=== PATIENT | male | born 1950 | race American Indian/Alaskan Native ===

== ENCOUNTER 2017-08-13 11:30 | Emergency (ER) | payer MEDICARE ==
--- NOTE | 2017-08-13 12:15 | Emergency Department Report ---
Chief Complaint: Dizziness Stated Complaint: DIZZINESS - HPI History of Present Illness: This is a 66-year-old male presented with dizziness. He denies any head trauma. Denies any nausea vomiting, chest pain, short of breath, fever, chills , stiff neck or headache. Past medical history includes renal disease, hep C, anemia. - Exam Vital Signs: Vital Signs 08/13/17 11:53 Temperature 98.5 F Pulse Rate 79 Respiratory 18 Rate Blood Pressure 118/75 O2 Sat by Pulse 100 Oximetry Physical Exam: GENERAL: The patient is a well-developed, well-nourished female in no apparent distress. Patient is alert and acting appropriately for age. Alert and oriented 3, no apparent distress, normal gait, atraumatic. NECK: Supple. No carotid bruits. No lymphadenopathy or thyromegaly.nontender. No meningitic signs are noted. LUNGS: Clear to auscultation. Non labor breathing. No intercostal retractions. Symmetrical with respiration, no wheezing, no rales, or crackles. HEART: Regular rate and rhythm without murmur, rubs or gallops. No reproducible. S1, S2 present, regular rate and rhythm without murmur, no rubs, no gallops. ABDOMEN: Soft, nontender, and nondistended. Positive bowel sounds. No hepatosplenomegaly was noted. No guarding or rebound tenderness, negative epigastric bruit. Negative psoas sign, negative betts sign, negative McBurneys sign NEUROLOGIC: Cranial nerves II through XII are grossly intact. Alert and oriented x 3. Normal gait. Symmetrical strength and sensation. Reflexes 2+ throughout. Cerebellar testing normal. GCS score of 15. MSE screening note: Focused history and physical exam performed. Due to findings the following was ordered: 1- This initial assessment/diagnostic orders/clinical plan/ treatment(s) is/are subject to change based on pt's health status, clinical progression and re- assessment by fellow clinical providers in the ED. Further treatment and workup at subsequent clinical provers discretion. Patient/guardians urged not to elope from ED as their condition may be serious if not clinically assessed and managed. 2-EKG 3-CBC, CMP, UA, Lipase 4-orthostatic vital signs ED Disposition for MSE Condition: Stable
[2017-08-13 12:33] LABS: Basophils % (Auto) 0.3 % (0.0-1.8); Eosinophils % (Auto) 1.4 % (0.0-4.3); Hematocrit 29.2 % (35.5-45.6); Hemoglobin 9.2 gm/dl (11.8-15.2); Mean Corpuscular HGB Conc 31 % (32-34); Mean Corpuscular Hemoglobin 27 pg (28-32); Mean Corpuscular Volume 85 fl (84-94); Platelet Count 150 K/mm3 (140-440); Red Blood Count 3.43 M/mm3 (3.65-5.03); Red Cell Distribution Width 14.5 % (13.2-15.2)
[2017-08-13 12:53] LABS: Albumin 3.8 g/dL (3.9-5); Albumin/Globulin Ratio 1.1 %; Bilirubin,Total 0.5 mg/dL (0.1-1.2); Calcium 8.4 mg/dL (8.4-10.2); Chloride 106.4 mmol/L (98-107); Potassium 4.9 mmol/L (3.6-5.0); Total Protein 7.3 g/dL (6.3-8.2)
[2017-08-13 18:07] LABS: Bacteria,Urine 1+ /HPF (Negative); Bilirubin,Urine NEG (Negative); Blood,Urine NEG (Negative); Ketones,Urine NEG (Negative); Leukocyte Esterase,Urine TR (Negative); Mucus,Urine FEW /HPF; Nitrite,Urine NEG (Negative); Protein,Urine <15 mg/dL mg/dL (Negative); Urobilinogen,Urine < 2.0 mg/dL (<2.0)
--- NOTE | 2017-08-13 21:59 | Emergency Department Report ---
ED General Adult HPI - General Chief complaint: Dizziness Stated complaint: DIZZINESS Time Seen by Provider: 08/13/17 20:25 Source: EMS Mode of arrival: Wheelchair Limitations: Physical Limitation - History of Present Illness Initial comments: Patient is a 66-year-old male past medical history of chronic kidney disease stage III and hypertension who presents with lightheadedness and dizziness. Patient's symptoms have been going on for about one hour. He was taking his blood pressure medications and afterwards he felt lightheaded. His blood pressure was 80 systolic however when EMS arrived his blood pressure was normotensive. Patient states that he is not lightheaded at the moment no nausea no vomiting. Additional history was obtained by cabin cleaner. Patient has some confusion at baseline. Patient is able to ambulate without any difficulty pulse ox is 100% on room air. Severity scale (0 -10): 0 - Related Data Previous Rx's Medication Instructions Recorded Last Taken Type Carvedilol [Coreg] 6.25 mg PO BID #60 tablet 06/30/13 Unknown Rx Clopidogrel [Plavix] 75 mg PO QDAY #30 tablet 06/30/13 Unknown Rx Ferrous Sulfate [Feosol 325 MG tab] 325 mg PO BID #60 tablet 06/30/13 Unknown Rx Mirtazapine [Remeron] 7.5 mg PO QHS #30 tablet 06/30/13 Unknown Rx NIFEdipine XL [Procardia Xl] 60 mg PO QDAY #30 tablet 06/30/13 Unknown Rx Sertraline [Zoloft] 25 mg PO QDAY #30 tablet 06/30/13 Unknown Rx Simvastatin [Zocor TAB] 20 mg PO QHS #30 tablet 06/30/13 Unknown Rx hydrALAZINE [Apresoline TAB] 100 mg PO Q8HR #90 tablet 06/30/13 Unknown Rx Lansoprazole Solutab [Prevacid 30 mg PO QDAY #30 tab.rapdis 07/02/13 Unknown Rx Solutab] Allergies Allergy/AdvReac Type Severity Reaction Status Date / Time No Known Allergies Allergy Unverified 06/02/13 14:13 ED Review of Systems ROS: Stated complaint: DIZZINESS Other details as noted in HPI Constitutional: denies: chills, fever Eyes: denies: eye pain, eye discharge, vision change ENT: denies: ear pain, throat pain Respiratory: denies: cough, shortness of breath, wheezing Cardiovascular: denies: chest pain, palpitations Endocrine: no symptoms reported Gastrointestinal: denies: abdominal pain, nausea, diarrhea Genitourinary: denies: urgency, dysuria Musculoskeletal: denies: back pain, joint swelling, arthralgia Skin: denies: rash, lesions Neurological: other (lightheadedness ). denies: headache, weakness, paresthesias Psychiatric: denies: anxiety, depression Hematological/Lymphatic: denies: easy bleeding, easy bruising ED Past Medical Hx - Past Medical History Hx Hypertension: Yes Hx Diabetes: Yes Hx Liver Disease: Yes (Hep C) Hx Renal Disease: Yes (CKD) Additional medical history: anemia- h/o blood transfusion - Surgical History Additional Surgical History: knift cut in abd-20yrs ago - Social History Smoking Status: Never Smoker Substance Use Type: None - Medications Home Medications: Home Medications Medication Instructions Recorded Confirmed Last Taken Type Carvedilol [Coreg] 6.25 mg PO BID #60 tablet 06/30/13 Unknown Rx Clopidogrel [Plavix] 75 mg PO QDAY #30 tablet 06/30/13 Unknown Rx Ferrous Sulfate [Feosol 325 MG tab] 325 mg PO BID #60 tablet 06/30/13 Unknown Rx Mirtazapine [Remeron] 7.5 mg PO QHS #30 tablet 06/30/13 Unknown Rx NIFEdipine XL [Procardia Xl] 60 mg PO QDAY #30 tablet 06/30/13 Unknown Rx Sertraline [Zoloft] 25 mg PO QDAY #30 tablet 06/30/13 Unknown Rx Simvastatin [Zocor TAB] 20 mg PO QHS #30 tablet 06/30/13 Unknown Rx hydrALAZINE [Apresoline TAB] 100 mg PO Q8HR #90 tablet 06/30/13 Unknown Rx Lansoprazole Solutab [Prevacid 30 mg PO QDAY #30 tab.rapdis 07/02/13 Unknown Rx Solutab] ED Physical Exam - General Limitations: Physical Limitation General appearance: alert, in no apparent distress - Head Head exam: Present: atraumatic, normocephalic - Eye Eye exam: Present: normal appearance - ENT ENT exam: Present: mucous membranes moist - Neck Neck exam: Present: normal inspection - Respiratory Respiratory exam: Present: normal lung sounds bilaterally. Absent: respiratory distress - Cardiovascular Cardiovascular Exam: Present: regular rate, normal rhythm. Absent: systolic murmur, diastolic murmur, rubs, gallop - GI/Abdominal GI/Abdominal exam: Present: soft, normal bowel sounds - Rectal Rectal exam: Present: deferred - Extremities Exam Extremities exam: Present: normal inspection - Back Exam Back exam: Present: normal inspection - Neurological Exam Neurological exam: Present: alert, oriented X3 - Psychiatric Psychiatric exam: Present: normal affect, normal mood - Skin Skin exam: Present: warm, dry, intact, normal color. Absent: rash ED Course Vital Signs 08/13/17 08/13/17 08/13/17 11:53 18:23 20:18 Temperature 98.5 F 98.4 F Pulse Rate 79 84 94 H Respiratory 18 18 28 H Rate Blood Pressure 118/75 136/86 Blood Pressure [Left] O2 Sat by Pulse 100 Oximetry 08/13/17 08/13/17 08/13/17 20:30 20:45 21:00 Temperature 98 F Pulse Rate 88 87 85 Respiratory 28 H 28 H 27 H Rate Blood Pressure 150/88 148/86 151/82 Blood Pressure 148/86 [Left] O2 Sat by Pulse 100 100 100 Oximetry 08/13/17 08/13/17 08/13/17 21:15 21:30 21:46 Temperature Pulse Rate 89 85 96 H Respiratory 29 H 28 H 31 H Rate Blood Pressure 150/92 148/82 160/88 Blood Pressure [Left] O2 Sat by Pulse 100 100 100 Oximetry ED Medical Decision Making - Lab Data Result diagrams: 08/13/17 12:16 08/13/17 12:16 Lab Results 08/13/17 08/13/17 08/13/17 Range/Units 12:16 12:16 17:38 WBC 5.0 (4.5-11.0) K/mm3 RBC 3.43 L (3.65-5.03) M/mm3 Hgb 9.2 L (11.8-15.2) gm/dl Hct 29.2 L (35.5-45.6) % MCV 85 (84-94) fl MCH 27 L (28-32) pg MCHC 31 L (32-34) % RDW 14.5 (13.2-15.2) % Plt Count 150 (140-440) K/mm3 Lymph % (Auto) 14.7 (13.4-35.0) % [place] % (Auto) 8.9 H (0.0-7.3) % Eos % (Auto) 1.4 (0.0-4.3) % Baso % (Auto) 0.3 (0.0-1.8) % Lymph # 0.7 L (1.2-5.4) K/mm3 [place] # 0.4 (0.0-0.8) K/mm3 Eos # 0.1 (0.0-0.4) K/mm3 Baso # 0.0 (0.0-0.1) K/mm3 Seg Neutrophils % 74.7 H (40.0-70.0) % Seg Neutrophils # 3.7 (1.8-7.7) K/mm3 Sodium 143 (137-145) mmol/L Potassium 4.9 (3.6-5.0) mmol/L Chloride 106.4 (98-107) mmol/L Carbon Dioxide 23 (22-30) mmol/L Anion Gap 19 mmol/L BUN 31 H (9-20) mg/dL Creatinine 2.4 H (0.8-1.5) mg/dL Estimated GFR 33 ml/min BUN/Creatinine Ratio 13 % Glucose 103 H (75-100) mg/dL Calcium 8.4 (8.4-10.2) mg/dL Total Bilirubin 0.50 (0.1-1.2) mg/dL AST 33 (5-40) units/L ALT 27 (7-56) units/L Alkaline Phosphatase 111 (35-129) units/L Total Protein 7.3 (6.3-8.2) g/dL Albumin 3.8 L (3.9-5) g/dL Albumin/Globulin Ratio 1.1 % Lipase 47 (13-60) units/L Urine Color Yellow (Yellow) Urine Turbidity Clear (Clear) Urine pH 5.0 (5.0-7.0) Ur Specific [place] 1.014 (1.003-1.030) Urine Protein <15 mg/dl (Negative) mg/dL Urine Glucose (UA) Neg (Negative) mg/dL Urine Ketones Neg (Negative) mg/dL Urine Blood Neg (Negative) Urine Nitrite Neg (Negative) Urine Bilirubin Neg (Negative) Urine Urobilinogen < 2.0 (<2.0) mg/dL Ur Leukocyte Esterase Tr (Negative) Urine WBC (Auto) 3.0 (0.0-6.0) /HPF Urine RBC (Auto) 2.0 (0.0-6.0) /HPF U Epithel Cells (Auto) < 1.0 (0-13.0) /HPF Urine Bacteria (Auto) 1+ (Negative) /HPF Hyaline Casts 3 /LPF Urine Mucus Few /HPF - EKG Data -: EKG Interpreted by Me - EKG Data 08/13/17 21:58 EKG shows normal sinus rhythm normal axis no ST segment elevation or T-wave inversion - Medical Decision Making Chief medical diagnosis: Hypotension secondary to medication effect Differential medical diagnosis: Electrolyte abnormality, chronic kidney disease , dehydration I will reassess patient I'll give patient oral fluids, CBC, CMP, EKG and urinalysis Agents laboratory findings are unremarkable patient's creatinine and BUS are elevated however according to cabin cleaner patient has chronic kidney disease stage III and going by his older records his creatinine and BUS are not significantly elevated than they usually are. Patient's blood pressure is 138/ 69 he is mentating well and does not need any more observation in the emergency department. I will send patient home. Additional verbal discharge instructions were given. Critical care attestation.: If time is entered above; I have spent that time in minutes in the direct care of this critically ill patient, excluding procedure time. ED Disposition Clinical Impression: Lightheadedness, Hypotension due to medication CKD (chronic kidney disease) Qualifiers: Chronic kidney disease stage: stage 3 (moderate) Qualified Code(s): N18.3 - Chronic kidney disease, stage 3 (moderate) Disposition: DC-01 TO HOME OR SELFCARE Is pt being admited?: No Does the pt Need Aspirin: No Condition: Stable Instructions: Chronic Kidney Disease (ED) Referrals: ALMA ROSA STROUD JR, MD [Primary Care Provider] - 3-5 Days
[2017-08-13 22:14] VITALS: BP 148/86
== END 2017-08-13 22:20 | disposition home or self-care (01) ==
LOC: ED 11:30
DX: R42 Dizziness and giddiness (principal); I95.9 Hypotension, unspecified; E11.22 Type 2 diabetes mellitus with diabetic chronic kidney disease; I12.9 Hypertensive chronic kidney disease with stage 1 through stage 4 chronic kidney disease, or unspecified chronic kidney disease; N18.3 Chronic kidney disease, stage 3 (moderate)
CPT/HCPCS: 36415; 80053; 81001; 82962; 83690; 85025; 93005; 93010; 99284

== ENCOUNTER 2019-06-08 10:13 | Inpatient (IN) | payer MEDICARE ==
--- NOTE | 2019-06-08 10:28 | Emergency Department Report ---
ED General Adult HPI - General Chief complaint: Neuro Symptoms/Deficit Stated complaint: AMS Time Seen by Provider: 06/08/19 10:20 Source: EMS Mode of arrival: Stretcher Limitations: Other - History of Present Illness Initial comments: 68 y.o. male with a history of CVA, HTN, renal disease (not on dialysis), anemia presents with complaint of altered mental status and weakness. Patient has not eaten in the past two days. Patient per family has been more altered than his usual baseline as they state he is normally conversational. Patient had elevated BP while at home. Patient per family was noted at 0200 to have weakness present. Patient currently is not fully communicative and is oriented to person only. Patient has had no falls per EMS via conversation with family. - Related Data Previous Rx's Medication Instructions Recorded Last Taken Type Carvedilol [Coreg] 6.25 mg PO BID #60 tablet 06/30/13 Unknown Rx Clopidogrel [Plavix] 75 mg PO QDAY #30 tablet 06/30/13 Unknown Rx Ferrous Sulfate [Feosol 325 MG tab] 325 mg PO BID #60 tablet 06/30/13 Unknown Rx Mirtazapine [Remeron 15mg TAB] 7.5 mg PO QHS #30 tablet 06/30/13 Unknown Rx NIFEdipine XL [Procardia Xl] 60 mg PO QDAY #30 tablet 06/30/13 Unknown Rx Sertraline [Zoloft] 25 mg PO QDAY #30 tablet 06/30/13 Unknown Rx Simvastatin (Nf) [Zocor TAB] 20 mg PO QHS #30 tablet 06/30/13 Unknown Rx hydrALAZINE [Apresoline TAB] 100 mg PO Q8HR #90 tablet 06/30/13 Unknown Rx Lansoprazole Solutab [Prevacid 30 mg PO QDAY #30 tab.rapdis 07/02/13 Unknown Rx Solutab] Allergies Allergy/AdvReac Type Severity Reaction Status Date / Time No Known Allergies Allergy Unverified 06/02/13 14:13 ED Review of Systems ROS: Stated complaint: AMS Other details as noted in HPI Comment: Unobtainable due to pts medical conditions ED Past Medical Hx - Past Medical History Hx Hypertension: Yes Hx Diabetes: Yes Hx Liver Disease: Yes (Hep C) Hx Renal Disease: Yes (CKD) Additional medical history: anemia- h/o blood transfusion - Surgical History Additional Surgical History: knift cut in abd-20yrs ago - Social History Smoking Status: Never Smoker Substance Use Type: None - Medications Home Medications: Home Medications Medication Instructions Recorded Confirmed Last Taken Type Carvedilol [Coreg] 6.25 mg PO BID #60 tablet 06/30/13 Unknown Rx Clopidogrel [Plavix] 75 mg PO QDAY #30 tablet 06/30/13 Unknown Rx Ferrous Sulfate [Feosol 325 MG tab] 325 mg PO BID #60 tablet 06/30/13 Unknown Rx Mirtazapine [Remeron 15mg TAB] 7.5 mg PO QHS #30 tablet 06/30/13 Unknown Rx NIFEdipine XL [Procardia Xl] 60 mg PO QDAY #30 tablet 06/30/13 Unknown Rx Sertraline [Zoloft] 25 mg PO QDAY #30 tablet 06/30/13 Unknown Rx Simvastatin (Nf) [Zocor TAB] 20 mg PO QHS #30 tablet 06/30/13 Unknown Rx hydrALAZINE [Apresoline TAB] 100 mg PO Q8HR #90 tablet 06/30/13 Unknown Rx Lansoprazole Solutab [Prevacid 30 mg PO QDAY #30 tab.rapdis 07/02/13 Unknown Rx Solutab] ED Physical Exam - General Limitations: Other General appearance: other (awake; dehydrated; uncomfortable; ) - Head Head exam: Present: atraumatic, normocephalic - Eye Eye exam: Present: normal appearance - ENT ENT exam: Present: mucous membranes dry - Neck Neck exam: Present: normal inspection - Respiratory Respiratory exam: Present: normal lung sounds bilaterally. Absent: respiratory distress - Cardiovascular Cardiovascular Exam: Present: regular rate, normal rhythm. Absent: systolic murmur, diastolic murmur, rubs, gallop - GI/Abdominal GI/Abdominal exam: Present: soft, normal bowel sounds. Absent: tenderness - Rectal Rectal exam: Present: deferred - Extremities Exam Extremities exam: Present: normal inspection - Back Exam Back exam: Present: normal inspection - Neurological Exam Neurological exam: Present: alert - Expanded Neurological Exam Expanded Neurological exam: Present: innattentive Patient oriented to: Present: person Cranial nerves: EOM's Intact: Normal, Gag Reflex: Normal Cerebellar function: Finger to Nose: Abnormal Left Motor strength exam: RUE: 5, LUE: 3, RLE: 5, LLE: 3 Best Eye Response (Garcia): (4) open spontaneously Best Motor Response (Garcia): (6) obeys commands Best Verbal Response (Garcia): (4) confused conversation [place] Total: 14 - Psychiatric Psychiatric exam: Present: normal affect, normal mood - Skin Skin exam: Present: warm, dry, intact, normal color. Absent: rash ED Course Vital Signs 06/08/19 06/08/19 06/08/19 11:16 11:23 11:24 Temperature 98 F Pulse Rate 100 H 92 H Respiratory 25 H Rate Blood Pressure 221/134 219/127 Blood Pressure 221/134 [Right] O2 Sat by Pulse 99 99 Oximetry ED Medical Decision Making - Lab Data Result diagrams: 06/08/19 10:41 06/08/19 10:41 - EKG Data EKG shows normal: sinus rhythm - EKG Data Interpretation: other (Prolonged QT) - Medical Decision Making Patient evaluated by Teleneurology who recommends admission and MRI and vascular ultrasound. Patient is not TPA candidate at current time. Patient to be evaluated with swallow screen as well. Patient to be admitted to the hospitalist service for continued management and treatment. Patient receiving IV fluids and nephrology to be consulted as well. - Differential Diagnosis CVA; Intracranial Bleed; Dehydration; Anemia Critical Care Time: Yes Critical care time in (mins) excluding proc time.: 40 Critical care attestation.: If time is entered above; I have spent that time in minutes in the direct care of this critically ill patient, excluding procedure time. Critical Care Time: Critical Care time does not include time spent on separately billable procedures. Critical care time includes time spent on direct bedside care; physician consultation, and family intervention as well as reassessments to interventions. ED Disposition Clinical Impression: HTN (hypertension), Anemia, Altered mental status, Renal failure Disposition: OP ADMIT IP TO THIS HOSP Is pt being admited?: Yes Condition: Stable Instructions: Hypertension (ED), Chronic Kidney Disease (ED) Time of Disposition: 11:52 Print Language: ITALIAN
--- NOTE | 2019-06-08 10:33 | Consultation ---
History of Present Illness Consult date: 06/08/19 Medications and Allergies Allergies Allergy/AdvReac Type Severity Reaction Status Date / Time No Known Allergies Allergy Unverified 06/02/13 14:13 Home Medications Medication Instructions Recorded Confirmed Last Taken Type Carvedilol [Coreg] 6.25 mg PO BID #60 tablet 06/30/13 Unknown Rx Clopidogrel [Plavix] 75 mg PO QDAY #30 tablet 06/30/13 Unknown Rx Ferrous Sulfate [Feosol 325 MG tab] 325 mg PO BID #60 tablet 06/30/13 Unknown Rx Mirtazapine [Remeron 15mg TAB] 7.5 mg PO QHS #30 tablet 06/30/13 Unknown Rx NIFEdipine XL [Procardia Xl] 60 mg PO QDAY #30 tablet 06/30/13 Unknown Rx Sertraline [Zoloft] 25 mg PO QDAY #30 tablet 06/30/13 Unknown Rx Simvastatin (Nf) [Zocor TAB] 20 mg PO QHS #30 tablet 06/30/13 Unknown Rx hydrALAZINE [Apresoline TAB] 100 mg PO Q8HR #90 tablet 06/30/13 Unknown Rx Lansoprazole Solutab [Prevacid 30 mg PO QDAY #30 tab.rapdis 07/02/13 Unknown Rx Solutab] - Assessment Assessment Interval: Baseline - Level of Consciousness 1a. Level of Consciousness: alert/keenly responsive - LOC Questions 1b. LOC Questions: answers no questions correctly - LOC Command 1c. LOC Commands: performs tasks correctly - Best Gaze 2. Best Gaze: normal - Visual 3. Visual: no visual loss - Facial Palsy 4. Facial Palsy: normal symmetrical movement - Motor Arm 5a. Motor Arm Left: drift 5b. Motor Arm Right: drift - Motor Leg 6a. Motor Leg Left: no gravity effort 6b. Motor Leg Right: no gravity effort - Limb Ataxia 7. Limb Ataxia: absent - Sensory 8. Sensory: severe/total sensory loss - Best Language 9. Best Language: mild/moderate aphasia - Dysarthria 10. Dysarthria: normal - Extinction and Inattention 11. Extinction/Inattention: no abnormality - Scoring Total Score: 13 Stroke Severity: Moderate Stroke Assessment and Plan Date of Service 06/08/2019 [facility] Comments: Last time known well: _ 06/07/19 14:00 Door time: _1019 [facility] contacted: _1023 [facility] at bedside: _1029 NIHSS assessment time: _1033 consult end time: _1052 Impression: altered mental status, nonfocal exam, likely toxic metabolic vs hypertensive encephalopathy, multifocal small strokes also a possibility causing altered mental status but no focal symptoms. Does (not) meet Large Vessel Occlusion (LVO) screening criteria (Aphasia, Neglect, Gaze deviation/preference, Dense hemiparesis, or Visual field deficits on exam), therefore advanced imaging (CTA head and neck and CTP brain) is (not) indicated. Differential Diagnosis: 1. Cardioembolic stroke 2. Small vessel disease/ lacune 3. Thromboembolic, [id number] mechanism 4. Hypercoagulable state-related infarct 5. Transient ischemic attack 6. Thrombotic mechanism, large artery disease tPA decision and other recommendations: _ Patient is not a tPA candidate Head CT did not show any acute hemorrhage. reviewed report (if available) and images Reason: _ last time known well>4.5 hours Patient is not a PLACIDO candidate: _ Thrombectomy not considered since large proximal intracranial vessel occlusion is not suspected. Recommendations dysphagia screen ASA if no contraindications head of bed flat IV fluids NS Stroke work up with: noncontrast brain MRI, head and neck MRA (or CTA), 2D ECHO, lipid panel, HbA1c (Goal LDL<70, HbA1c<7) inpatient neurology consultation Inpatient stroke evaluation as per Neurology/ Internal Medicine Discussed with ED physician/medical staff Please contact [facility] Navigator to reach me if further questions/concerns arise. Reason for Stroke Alert and History of Present Illness: _ Patient is a(n) 68 years old male, with history of being bed bound, stroke, unclear baseline but apparently family reported to EMS that he has difficulty speaking at time , has not eaten in 2 days. last known well: 06/07/19 14:00 Blood Pressure: 220/130 Blood Glucose: Ischemic stroke or severe head trauma in the previous 3 months: No Previous Intracranial hemorrhage: No Intra-axial intracranial neoplasm: No Gastrointestinal malignancy or hemorrhage in the previous 21 days: No Intracranial or Intraspinal surgery within the prior 3 months: No Current or recent use of anticoagulation: No Known active bleeding or bleeding disorders: No - Major head trauma or surgery in the past 14 days: No Large (>10mm), untreated, unruptured intracranial aneurysm: No Untreated Intracranial vascular malformation: No Review of Systems: Constitutional: Negative except as documented in history of present illness. Eye: Negative except as documented in history of present illness. Ear/Nose/Mouth/Throat: Negative except as documented in history of present illness. Respiratory: Negative except as documented in history of present illness. Cardiovascular: Negative except as documented in history of present illness. Gastrointestinal: Negative except as documented in history of present illness. Musculoskeletal: Negative except as documented in history of present illness. Neurologic: Negative except as documented in history of present illness. Examination: NIHSS Details documented in the note ___ 13 Medical Decision Making: - Extensive number of diagnosis or management options are considered above. - Extensive amount of complex data reviewed. - High risk of complication and/or morbidity or mortality are associated with differential diagnostic considerations above. - There may be Uncertain outcome and increased probability of prolonged functional impairment or high probability of severe prolonged functional impairment associated with some of these differential diagnoses. Medical Data Reviewed: 1.Data reviewed include clinical labs, radiology, Medical Tests; 2.Tests results discussed w/performing or interpreting physician; 3.Obtaining/reviewing old medical records; 4.Obtaining case history from another source; 5.Independent review of image, tracing or specimen. When possible Patient/family were informed the Neurology Consult would happen via TeleHealth consult by way of interactive audio and video telecommunications and consented to receiving care in this manner. Case discussed with the Medical staff. Critical Care notation: I was called to see this critical patient emergently. I personally evaluated this critical patient for acute stroke evaluation and determining their eligibility for IV Alteplase and interventional therapies. I have spent approximately _23_ minutes with the patient, including time at bedside, time dis cussing the case with other physicians, reviewing plan of care, and time independently reviewing the records and scans.
--- NOTE | 2019-06-08 10:46 | Cat Scan Report ---
CT HEAD WITHOUT CONTRAST INDICATION / CLINICAL INFORMATION: MAIN: neuro deficits <6hrs or sx present upon awakening] STROKE P ROTOCOL [id number]. Stroke protocol TECHNIQUE: Axial imaging performed from the skull apex through the skull base without the use of cont rast. Sagittal and coronal reformatted images. All CT scans at this location are performed using CT dose reduction for ALARA by means of automated exposure control. COMPARISON: None available. FINDINGS: CEREBRAL PARENCHYMA: No significant abnormality. No acute territorial infarct. Moderate chronic ische abhilahs changes are noted in the white matter bilaterally. There are multiple chronic appearing lacunar i nfarcts in both basal ganglia and jermaine. HEMORRHAGE: None. EXTRA-AXIAL SPACES: Normal in size and morphology for the patient's age. VENTRICULAR SYSTEM: Normal in size and morphology for the patient's age. MIDLINE SHIFT OR HERNIATION: None. CEREBELLUM / BRAINSTEM: No significant abnormality. CALVARIUM: No significant abnormality. ORBITS: Normal as visualized. PARANASAL SINUSES / MASTOID AIR CELLS: Normal as visualized. SOFT TISSUES of HEAD: No significant abnormality. ADDITIONAL FINDINGS: None. IMPRESSION: Chronic white matter changes. Multiple chronic lacunar infarcts in the basal ganglia and jermaine. No acu te intracranial process is appreciated on noncontrast CT. These findings were discussed with Dr. Stevenson in the emergency department at 1041 hours EST. Signer Name: Milind Mireles Jr, MD Signed: 06/08/2019 10:42 AM Workstation Name: [id number]
[2019-06-08 10:59] LABS: INR 1.15 (0.87-1.13)
[2019-06-08 11:00] LABS: Thrombin Time 16.4 Sec. (15.1-19.6)
[2019-06-08 11:02] LABS: Basophils % (Auto) 0.2 % (0.0-1.8); Eosinophils % (Auto) 0.2 % (0.0-4.3); Hematocrit 31.2 % (35.5-45.6); Hemoglobin 10.5 gm/dl (11.8-15.2); Lymphocytes # (Auto) 0.8 K/mm3 (1.2-5.4); Mean Corpuscular HGB Conc 34 % (32-34); Mean Corpuscular Volume 85 fl (84-94); Monocytes # (Auto) 0.4 K/mm3 (0.0-0.8); Monocytes % (Auto) 4.6 % (0.0-7.3); Platelet Count 124 K/mm3 (140-440); Red Blood Count 3.69 M/mm3 (3.65-5.03); Red Cell Distribution Width 14.5 % (13.2-15.2)
[2019-06-08 11:11] LABS: Calcium 8.8 mg/dL (8.4-10.2)
[2019-06-08 11:28] LABS: Chol/HDL Ratio 1.88 %
[2019-06-08] MEDS: niCARdipine 50 MG in SODIUM CHLORIDE 0.9% 250ML 230 ML IV SCH (13:15)
[2019-06-08] MEDS ORDERED: SODIUM CHLORIDE 0.9% 1000 ML 1,000 ML ONE ×2 (13:18→23:43)
[2019-06-08] MEDS: SODIUM CHLORIDE 0.9% 1000 ML 1,000 ML IV SCH (13:25)
[2019-06-08] MEDS ORDERED: IBUPROFEN 600 MG TAB PO PRN (22:23)
[2019-06-08] MEDS ORDERED: ACETAMINOPHEN 325 MG TAB PO PRN (22:23)
[2019-06-08] MEDS ORDERED: ONDANSETRON 4 MG/2 ML INJ IV PRN (22:23)
[2019-06-08] MEDS ORDERED: FAMOTIDINE 20 MG/2 ML INJ IV SCH ×2 (23:00)
[2019-06-08] MEDS ORDERED: LOSARTAN 50 MG TAB ONE (23:38)
[2019-06-08] MEDS ORDERED: FAMOTIDINE 20 MG/2 ML INJ IV ONE (23:41)
[2019-06-08] MEDS: LOSARTAN 50 MG TAB PO SCH (23:45)
[2019-06-08] MEDS: carvediloL 12.5 MG TAB PO SCH (23:45)
[2019-06-09] MEDS: SODIUM CHLORIDE 0.9% 1000 ML 1,000 ML IV SCH (00:08)
[2019-06-09 04:31] LABS: Basophils % (Auto) 0.3 % (0.0-1.8); Eosinophils # (Auto) 0.2 K/mm3 (0.0-0.4); Hematocrit 31.1 % (35.5-45.6); Hemoglobin 10.2 gm/dl (11.8-15.2); Lymphocytes # (Auto) 0.9 K/mm3 (1.2-5.4); Lymphocytes % (Auto) 15.7 % (13.4-35.0); Mean Corpuscular HGB Conc 33 % (32-34); Mean Corpuscular Volume 87 fl (84-94); Monocytes # (Auto) 0.4 K/mm3 (0.0-0.8); Monocytes % (Auto) 6.5 % (0.0-7.3); Platelet Count 100 K/mm3 (140-440); Red Blood Count 3.59 M/mm3 (3.65-5.03); Red Cell Distribution Width 15.1 % (13.2-15.2)
[2019-06-09 04:56] LABS: Albumin 3.2 g/dL (3.9-5); Calcium 8.2 mg/dL (8.4-10.2)
[2019-06-09] MEDS: niCARdipine 50 MG in SODIUM CHLORIDE 0.9% 250ML 230 ML IV SCH (05:00)
--- NOTE | 2019-06-09 06:37 | Event Note ---
Date: 06/08/19 See H/p in reports Htn emergency CVA--L sided weakness Stroke protocol ESRD on HD
[2019-06-09] MEDS ORDERED: hydrALAZINE 100 MG TAB ONE (07:02)
[2019-06-09] MEDS: hydrALAZINE 100 MG TAB PO SCH ×3 (07:06→23:20)
--- NOTE | 2019-06-09 08:00 | History and Physical Report ---
CHIEF COMPLAINT: 1. Altered sensorium. 2. Left-sided weakness. HISTORY OF PRESENT ILLNESS: A 68-year-old male with history of hypertension; end-stage renal disease, on dialysis; anemia and hyperlipidemia, presents with altered mental status and weakness. The patient has left-sided weakness. The patient did not eat for the last 2 days. The patient is normally conversational. As per family, the patient has left-sided weakness and also not communicative. Oriented to person only. No falls. No fever or chills. No nasal regurgitation of fluids. No diplopia. PAST MEDICAL HISTORY: Significant for: 1. Hypertension. 2. Anemia. 3. End-stage renal disease, on hemodialysis. 4. Hyperlipidemia. 5. Gastroesophageal reflux disease. PAST SURGICAL HISTORY: Abdominal surgery 20 years ago and AV fistula. SOCIAL HISTORY: Does not smoke. No alcohol, no recreational drugs. FAMILY HISTORY: Hypertension. REVIEW OF SYSTEMS: Significant for left-sided weakness. The patient is not so cooperative and altered sensorium. Otherwise, review of systems negative. PHYSICAL EXAMINATION: GENERAL: Elderly male, cooperative during examination. VITAL SIGNS: Initial blood pressure is 224/132, temperature is 98, pulse is 97, respirations are 14. Blood pressure came down to 170/98 around 1345 hours, pulse is 85, respirations are 26, sats are 98%. HEENT: Unremarkable. Pupils equal and reactive. NECK: Supple, no lymphadenopathy, no thyromegaly. LUNGS: Clear to auscultation and percussion. Good air entry. CARDIOVASCULAR SYSTEM: S1, S2 heard. No gallop, no murmur, no rub. Apical impulse in left fifth intercostal space and midclavicular line. ABDOMEN: Soft and benign. No hepatosplenomegaly. No guarding, no rigidity. Hernial orifices are normal. EXTREMITIES: Good pedal pulses. Left-sided weakness present. About 3/5 power in left upper and left lower extremity. The patient is alert, but lethargic. SKIN: Normal. LABORATORY DATA: Significant for white count of 8200, H and H is 10.5 and 31.2, platelet count is 124,000. Protime is 14.4, INR is 1.15. Sodium is 140, potassium is 3.9, BUN and creatinine 35 and 2.7, glucose is 130. A1c is 5.1. Troponin is 0.075. ASSESSMENT AND PLAN: 1. Hypertensive emergency. The patient initiated on Cardene drip. The patient also initiated Coreg 12.5 q. 12 and losartan 100 mg once a day. Also, intravenous labetalol to be given p.r.n. Add hydralazine 50 q. 8 and Procardia if necessary. Nifedipine is added. 2. End-stage renal disease. Continue hemodialysis. 3. Cerebrovascular accident. The patient has left-sided weakness, which is improving in the Emergency Room. We will get a stroke protocol initiated. Neurology consult requested. 4. End-stage renal disease, on hemodialysis. Continue hemodialysis. 5. Anemia. Continue iron. 6. Coronary artery disease. Continue Plavix. 7. Depression. Continue sertraline. 8. Hyperlipidemia. Continue simvastatin. 9. Deep venous thrombosis prophylaxis. Heparin 5000 q. 12. 10. Gastrointestinal prophylaxis. The patient is already on Prevacid. In summary, the patient has hypertensive emergency; possible CVA; end-stage renal disease, on hemodialysis. JOB# [id number] DEEDEE/CHRIS CHURCHILL
--- NOTE | 2019-06-09 09:16 | Vascular Lab Report ---
BILATERAL CAROTID DOPPLER ULTRASOUND INDICATION : stroke TECHNIQUE: Grayscale and color Doppler imaging performed through the neck. COMPARISON: None FINDINGS: Right: There is no significant atherosclerotic disease. Peak systolic velocity in the CCA is 67 cm/ s with end-diastolic velocity of 19 cm/s. Peak systolic velocity in the proximal ICA is 86 cm/s with end-diastolic velocity of 42 cm/s. ICA to CCA ratio is less than 2. There is antegrade flow in the E CA and the vertebral artery. Left: There is no significant atherosclerotic disease. Peak systolic velocity in the CCA is 51 cm/s w ith end-diastolic velocity of 15 cm/s. Peak systolic velocity in the proximal ICA is 67 cm/s with end -diastolic velocity of 28 cm/s. ICA to CCA ratio is less than 2. There is antegrade flow in the ECA and the vertebral artery. IMPRESSION: No hemodynamically significant stenosis by NASCET criteria. Signer Name: Milind Mireles Jr, MD Signed: 06/09/2019 9:11 AM Workstation Name: [id number]
[2019-06-09] MEDS: LOSARTAN 50 MG TAB PO SCH (10:28)
[2019-06-09] MEDS: carvediloL 12.5 MG TAB PO SCH (10:28)
[2019-06-09] MEDS: ASPIRIN 325 MG TAB PO SCH (10:28)
[2019-06-09] MEDS: CLOPIDOGREL 75 MG TAB PO SCH (10:29)
[2019-06-09] MEDS: FERROUS SULFATE 325 MG TAB PO SCH ×2 (10:29→23:21)
[2019-06-09] MEDS: SERTRALINE 25 MG TAB PO SCH (10:30)
[2019-06-09] MEDS: NIFEdipine XL 60 MG TAB PO SCH (10:30)
--- NOTE | 2019-06-09 10:40 | Progress Note ---
Assessment and Plan /Acute hypertensive encephalopathy -Suspected CVA on admission which is ruled out - The family member mental status now at baseline -Patient also has underlying dementia - Patient has negative stroke workup - Continue to monitor with frequent neuro checkup, follow neurology recommendation /Hypertensive emergency - Initial blood pressure was 224 x 1 32 - Placed on Cardene drip which is now weaned off - We'll resume home oral medications - We'll downgrade the patient to IMCU - We will also give IV hydralazine as needed to keep systolic blood pressure less than 160 /CK D stage III - renal functions appears to be at baseline - Patient currently not receiving dialysis and does not have diagnosis of an substernal disease /Anemia of chronic disease, continue to monitor H&H /CHFrEf ~30%, stable - Continue aspirin and Plavix and statin /History of coronary artery disease, continue Plavix and starting /Hyperlipidemia continue statin /DVT prophylaxis, heparin 5000 every 12 hours /GERD, continue PPI /History of depression with underlying dementia - We'll resume Sertraline and continue to provide supportive care Physical debility, PT and OT consulted will follow recommendation Brief History: [id number] male with history of hypertension, CHF with ejection fraction around 30% back on 2017, hyperlipidemia underlying dementia presented to the hospital with altered mental status and generalized weakness. On admission his blood pressure was noted to be 224 x 1 32. He was placed on Cardene drip, initiated stroke protocol and admitted to ICU. Radiological data: CT head no acute intracranial process MRI/MRA brain; no acute infarct 2-D echo: Results pending Hospitalist Physical exam: GENERAL: Elderly malnourished -[place] male lying on bed appeared to be in no discomfort. HEENT: Normocephalic. Atraumatic. No conjunctival congestion or icterus. Patient has moist mucous membranes. NECK: Supple. Trachea midline. CHEST/LUNGS: Clear to auscultated bilaterally, breathing nonlabored. No wheezes crackles or rhonchi. HEART/CARDIOVASCULAR: Regular in rate and rhythm. S1 and S2 positive. ABDOMEN: Abdomen is soft, nontender. Patient has normal bowel sounds. SKIN: There is no rash. Warm and dry. NEURO: No focal motor deficit. Follows command. Appears slightly confused and not oriented to time or place MUSCULOSKELETAL: No joint effusion or tenderness. EXTRIMITY: No edema, no cyanosis or clubbing. PSYCH: Cooperative. Subjective Date of service: 06/09/19 Interval history: Patient seen and examined. Medical records and medication list reviewed. No acute event overnight noted by the RN. Off Cardene drip Patient denies any chest pain or difficulty breathing. Patient passed a bedside swallow eval. Discussed plan of care at bedside with patient's RN. Downgraded to IMCU Objective - Constitutional Vitals: Vital Signs - 12hr 06/08/19 06/08/19 06/08/19 22:45 23:00 23:15 Temperature Pulse Rate 100 H 96 H 97 H Respiratory 31 H 30 H 33 H Rate Blood Pressure 170/92 163/92 170/96 Blood Pressure [Right] O2 Sat by Pulse 96 96 97 Oximetry 06/08/19 06/08/19 06/08/19 23:28 23:30 23:45 Temperature Pulse Rate 98 H 97 H 109 H Respiratory 32 H 29 H 36 H Rate Blood Pressure 170/96 162/92 163/101 Blood Pressure [Right] O2 Sat by Pulse 97 97 97 Oximetry 06/09/19 06/09/19 06/09/19 00:00 00:15 00:30 Temperature Pulse Rate 106 H 99 H 102 H Respiratory 35 H 31 H 31 H Rate Blood Pressure 173/94 153/90 152/89 Blood Pressure [Right] O2 Sat by Pulse 98 98 100 Oximetry 06/09/19 06/09/19 06/09/19 00:45 01:00 01:15 Temperature Pulse Rate 96 H 92 H 87 Respiratory 31 H 30 H 30 H Rate Blood Pressure 149/87 149/88 149/86 Blood Pressure [Right] O2 Sat by Pulse 98 98 97 Oximetry 06/09/19 06/09/19 06/09/19 01:30 01:45 02:00 Temperature Pulse Rate 84 86 83 Respiratory 26 H 25 H 28 H Rate Blood Pressure 158/93 154/90 160/92 Blood Pressure [Right] O2 Sat by Pulse 98 100 100 Oximetry 06/09/19 06/09/19 06/09/19 02:15 02:30 02:45 Temperature Pulse Rate 87 85 87 Respiratory 30 H 26 H 27 H Rate Blood Pressure 163/91 161/90 164/92 Blood Pressure [Right] O2 Sat by Pulse 98 98 98 Oximetry 06/09/19 06/09/19 06/09/19 03:00 03:15 03:30 Temperature Pulse Rate 86 93 H 89 Respiratory 27 H 26 H 27 H Rate Blood Pressure 156/92 167/96 171/95 Blood Pressure [Right] O2 Sat by Pulse 98 98 98 Oximetry 06/09/19 06/09/19 06/09/19 03:45 04:00 04:16 Temperature Pulse Rate 87 91 H 98 H Respiratory 28 H 29 H 30 H Rate Blood Pressure 170/96 170/96 170/96 Blood Pressure [Right] O2 Sat by Pulse 99 98 98 Oximetry 06/09/19 06/09/19 06/09/19 04:30 04:46 05:00 Temperature Pulse Rate 91 H 90 91 H Respiratory 28 H 28 H 27 H Rate Blood Pressure 173/98 173/98 178/102 Blood Pressure [Right] O2 Sat by Pulse 98 97 96 Oximetry 06/09/19 06/09/19 06/09/19 05:15 05:30 05:45 Temperature Pulse Rate 92 H 101 H 95 H Respiratory 30 H 32 H 27 H Rate Blood Pressure 173/97 164/95 151/88 Blood Pressure [Right] O2 Sat by Pulse 97 95 98 Oximetry 06/09/19 06/09/19 06/09/19 06:00 06:15 06:30 Temperature Pulse Rate 90 90 86 Respiratory 27 H 25 H 27 H Rate Blood Pressure 154/94 161/93 171/98 Blood Pressure [Right] O2 Sat by Pulse 97 97 98 Oximetry 06/09/19 07:00 Temperature 99 F Pulse Rate 90 Respiratory 18 Rate Blood Pressure Blood Pressure 175/106 [Right] O2 Sat by Pulse 98 Oximetry - Labs CBC & Chem 7: 06/09/19 03:59 06/09/19 03:59 Labs: Abnormal lab results 06/08/19 06/08/19 06/08/19 Range/Units 10:41 10:41 10:41 RBC (3.65-5.03) M/mm3 Hgb 10.5 L (11.8-15.2) gm/dl Hct 31.2 L (35.5-45.6) % Plt Count 124 L (140-440) K/mm3 Lymph % (Auto) 10.0 L (13.4-35.0) % Lymph # 0.8 L (1.2-5.4) K/mm3 Seg Neutrophils % 85.0 H (40.0-70.0) % INR 1.15 H (0.87-1.13) Carbon Dioxide 20 L (22-30) mmol/L BUN 35 H (9-20) mg/dL Creatinine 2.7 H (0.8-1.5) mg/dL Glucose 130 H (75-100) mg/dL POC Glucose (70-105) Calcium (8.4-10.2) mg/dL Troponin T 0.075 H (0.00-0.029) ng/mL Albumin (3.9-5) g/dL HDL Cholesterol 78 H (40-59) mg/dL 06/08/19 06/09/19 06/09/19 Range/Units 23:20 03:59 03:59 RBC 3.59 L (3.65-5.03) M/mm3 Hgb 10.2 L (11.8-15.2) gm/dl Hct 31.1 L (35.5-45.6) % Plt Count 100 L (140-440) K/mm3 Lymph % (Auto) (13.4-35.0) % Lymph # 0.9 L (1.2-5.4) K/mm3 Seg Neutrophils % 74.5 H (40.0-70.0) % INR (0.87-1.13) Carbon Dioxide 21 L (22-30) mmol/L BUN 35 H (9-20) mg/dL Creatinine 2.5 H (0.8-1.5) mg/dL Glucose 117 H (75-100) mg/dL POC Glucose 121 H (70-105) Calcium 8.2 L (8.4-10.2) mg/dL Troponin T (0.00-0.029) ng/mL Albumin 3.2 L (3.9-5) g/dL HDL Cholesterol (40-59) mg/dL
--- NOTE | 2019-06-09 15:31 | Magnetic Resonance Report ---
MRI BRAIN 06/09/2019 INDICATION / CLINICAL INFORMATION: stroke. Left-sided weakness TECHNIQUE: Multiplanar, multisequence MR images of the brain were obtained. COMPARISON: None available. FINDINGS: BRAIN / INTRACRANIAL CONTENTS: Unenhanced MR images of the brain were obtained. There is no evidence of acute abnormality. Ventricles and sulci are prominent in size, consistent with diffuse cerebral atrophy, predominantly c entral. There is no evidence of acute ischemic injury, hemorrhage, or mass. Prominent periventricular and yayo p white matter T2 weighted hyperintensities are present throughout the cerebral hemispheric white mat ter and brainstem, consistent with extensive chronic small vessel ischemic change. There is no evidence of acute ischemic injury, hemorrhage, or mass. The gradient echo sequences demonstrate innumerable small foci of signal loss, consistent with diffus e chronic microhemorrhages. This is generally seen in association with severe chronic small vessel is chemic change and small vessel disease. There is no evidence of acute or recent hemorrhage. EXTRACRANIAL: Unremarkable CRANIOCERVICAL JUNCTION: No significant abnormality. VASCULAR FLOW-VOIDS: No significant abnormality. IMPRESSION: 1. No acute abnormality. 2. Extensive chronic white matter signal change. 3 numerous punctate chronic microhemorrhages/hemosiderin deposits. 4 diffuse cerebral atrophy, predominantly central Signer Name: Jarrod Frederick MD Signed: 06/09/2019 3:26 PM Workstation Name: [email or web address] FOR [id number]
--- NOTE | 2019-06-09 15:32 | Magnetic Resonance Report ---
MRA HEAD 06/09/2019 INDICATION / CLINICAL INFORMATION: stroke. Left-sided weakness TECHNIQUE: Routine MRA of the head is performed. 3-D/MIP reformats postprocessed. COMPARISON: None available. FINDINGS: MRA HEAD: Intracranial internal carotid arteries: No significant abnormality. Anterior cerebral arteries: No significant abnormality. Middle cerebral arteries: No significant abnormality. Intracranial vertebral arteries: No significant abnormality. Basilar artery: No significant abnormality. Posterior cerebral arteries: No significant abnormality. IMPRESSION: No significant abnormality. Signer Name: Jarrod Frederick MD Signed: 06/09/2019 3:27 PM Workstation Name: [id number]
--- NOTE | 2019-06-09 15:35 | Magnetic Resonance Report ---
MRA NECK 06/09/2019 HISTORY: Left-sided weakness. FINDINGS: Unenhanced MR angiographic images of the neck were obtained. There is a normal MR angiographic appearance of the carotid bifurcations and carotid arteries, The ve rtebral arteries also have a normal MR angiographic appearance. There is 0% stenosis based on NASCET like criteria. IMPRESSION: No significant abnormality. Signer Name: Jarrod Frederick MD Signed: 06/09/2019 3:31 PM Workstation Name: [id number]
[2019-06-09] MEDS ORDERED: DOCUSATE SODIUM 100 MG CAP PO PRN (16:12)
[2019-06-09] MEDS ORDERED: amLODIPine 10 MG TAB PO SCH (17:00)
--- NOTE | 2019-06-09 18:48 | Progress Note ---
Assessment and Plan This is a 68 YO M with worsening weakness, appears to have overall decline in function. Difficult to determine what is old or new REcommend: Continue medical work up as you are doing, rule metabolic, infectious issues Check b12, tsh, ammonia if not already done EEG Subjective Date of service: 06/09/19 Interval history: Pt seen by teleneuro acutely for r/o stroke. MRI negative. Pt is not a good historian, neither are family members at bedside. Pt with previous stroke but they are not sure of any residual symptoms. Objective - Vital Sign Vital Signs - 12hr 06/09/19 06/09/19 06/09/19 07:00 07:30 08:00 Temperature 99 F Pulse Rate 91 H 90 96 H Respiratory 20 21 27 H Rate Blood Pressure 181/103 166/94 148/86 Blood Pressure 175/106 [Right] O2 Sat by Pulse 96 98 99 Oximetry 06/09/19 06/09/19 06/09/19 09:16 10:00 10:46 Temperature Pulse Rate 89 72 90 Respiratory 22 21 26 H Rate Blood Pressure 146/82 146/78 146/78 Blood Pressure [Right] O2 Sat by Pulse 98 96 98 Oximetry 06/09/19 06/09/19 11:46 16:00 Temperature Pulse Rate 94 H 104 H Respiratory 14 Rate Blood Pressure 159/93 Blood Pressure [Right] O2 Sat by Pulse 99 Oximetry - General Apperance Constitutional: comfortable - EENT EENT: ATNC - Respiratory Respiratory: lungs clear - Cardiovascular Cardiovascular: regular rate - Gastrointestinal Gastrointestinal: normoactive bowel sounds - Neurologic Cranial nerve examination: PERRL, EOMI, face symmetric, tongue midline Motor examination - 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, hip flexors, knee extensors, dorsiflexion, toe extension (EHL), plantarflexion, 5/5: biceps, triceps, wrist flexion, wrist extension Motor examination - left side: 1/5: biceps, triceps, wrist flexion, wrist extension, sprinkler truck driver, 3/5: hip flexors, knee extensors, dorsiflexion, toe extension (EHL), plantarflexion Detailed sensory examination: intact Reflexes: 0: ankle, 1+: bicep, tricep, 2+: knee - Laboratory Findings CBC and BMP: 06/09/19 03:59 06/09/19 03:59 Abnormal Lab Findings: Abnormal Labs 06/08/19 06/08/19 06/08/19 10:41 10:41 10:41 RBC Hgb 10.5 L Hct 31.2 L Plt Count 124 L Lymph % (Auto) 10.0 L Lymph # 0.8 L Seg Neutrophils % 85.0 H INR 1.15 H Carbon Dioxide 20 L BUN 35 H Creatinine 2.7 H Glucose 130 H POC Glucose Calcium Troponin T 0.075 H Albumin HDL Cholesterol 78 H 06/08/19 06/08/19 06/09/19 10:43 23:20 03:59 RBC 3.59 L Hgb 10.2 L Hct 31.1 L Plt Count 100 L Lymph % (Auto) Lymph # 0.9 L Seg Neutrophils % 74.5 H INR Carbon Dioxide BUN Creatinine Glucose POC Glucose 132 H 121 H Calcium Troponin T Albumin HDL Cholesterol 06/09/19 03:59 RBC Hgb Hct Plt Count Lymph % (Auto) Lymph # Seg Neutrophils % INR Carbon Dioxide 21 L BUN 35 H Creatinine 2.5 H Glucose 117 H POC Glucose Calcium 8.2 L Troponin T Albumin 3.2 L HDL Cholesterol - Diagnostic Findings Additional findings: MRI Brain no new stroke, chronic microhemorrhages
[2019-06-09] MEDS ORDERED: NON-FORMULARY EACH (Simvastatin 20 MG) PO SCH (22:00)
[2019-06-09] MEDS: carvediloL 6.25 MG TAB PO SCH (23:20)
[2019-06-09] MEDS: PRAVASTATIN 40 MG TAB PO SCH (23:20)
[2019-06-09] MEDS: MIRTAZAPINE 15 MG TAB PO SCH (23:21)
[2019-06-10] MEDS: hydrALAZINE 20 MG/1 ML INJ IV PRN ×4 (00:41→11:36)
[2019-06-10] MEDS: hydrALAZINE 100 MG TAB PO SCH ×3 (05:55→21:01)
[2019-06-10] MEDS: ASPIRIN 325 MG TAB PO SCH (09:10)
[2019-06-10] MEDS: CLOPIDOGREL 75 MG TAB PO SCH (09:11)
[2019-06-10] MEDS: LANSOPRAZOLE 30 MG SOLUTAB FEEDTUBE SCH (09:11)
[2019-06-10] MEDS: NIFEdipine XL 60 MG TAB PO SCH (09:11)
[2019-06-10] MEDS: LOSARTAN 50 MG TAB PO SCH (09:12)
[2019-06-10] MEDS: carvediloL 6.25 MG TAB PO SCH ×2 (09:13→21:01)
[2019-06-10] MEDS: FERROUS SULFATE 325 MG TAB PO SCH ×2 (09:13→21:01)
[2019-06-10] MEDS: SERTRALINE 25 MG TAB PO SCH (09:14)
--- NOTE | 2019-06-10 12:04 | Progress Note ---
Assessment and Plan /Acute hypertensive encephalopathy with underlying dementia -Suspected CVA on admission which is ruled out - per family member mental status now at baseline -Patient also has underlying dementia - Patient has negative stroke workup - Continue to monitor with frequent neuro checkup, neurology following /Hypertensive emergency - Initial blood pressure was 224 x 1 32 - Placed on Cardene drip which is now weaned off - Resumed home oral medications - We will also give IV hydralazine as needed to keep systolic blood pressure less than 160 /Elevated troponin, likely NSTEMI 2 - likely from underlying CHF, elevated BP and CRD - denies chest pain, trended trop -follow 2 echo, consulted cardiology /CKD stage III - renal functions appears to be at baseline - Patient currently not receiving dialysis and does not have diagnosis of ESRD /Anemia of chronic disease, continue to monitor H&H /CHFrEf ~30%, stable - Continue aspirin and Plavix and statin /History of coronary artery disease, continue Plavix and statin /Hyperlipidemia continue statin /DVT prophylaxis, heparin 5000 every 12 hours /GERD, continue PPI /History of depression with underlying dementia - Resumed Sertraline and continue to provide supportive care Physical debility, PT and OT consulted will follow recommendation. transfer to [facility] Brief History: [id number] male with history of hypertension, CHF with ejection fraction yvan und 30% back on 2017, hyperlipidemia underlying dementia presented to the hospital with altered mental status and generalized weakness. On admission his blood pressure was noted to be 224 x 1 32. He was placed on Cardene drip, initiated stroke protocol and admitted to ICU. Radiological data: CT head no acute intracranial process MRI/MRA brain; no acute infarct 2-D echo: Results pending Hospitalist Physical exam: GENERAL: Elderly malnourished -[place] male lying on bed appeared to be in no discomfort. HEENT: Normocephalic. Atraumatic. No conjunctival congestion or icterus. Patient has moist mucous membranes. NECK: Supple. Trachea midline. CHEST/LUNGS: Clear to auscultated bilaterally, breathing nonlabored. No wheezes crackles or rhonchi. HEART/CARDIOVASCULAR: Regular in rate and rhythm. S1 and S2 positive. ABDOMEN: Abdomen is soft, nontender. Patient has normal bowel sounds. SKIN: There is no rash. Warm and dry. NEURO: No focal motor deficit. Follows command. Appears slightly confused and not oriented to time or place MUSCULOSKELETAL: No joint effusion or tenderness. EXTRIMITY: No edema, no cyanosis or clubbing. PSYCH: Cooperative. Subjective Date of service: 06/10/19 Interval history: Patient seen and examined. Medical records and medication list reviewed. No acute event overnight noted by the RN. BP much improved today Patient denies any chest pain or difficulty breathing. Discussed plan of care at bedside with patient's RN and his family. Patient unable to take care of himself and [place] most likely he was not able to take his medications b/o underlying dementia Objective - Constitutional Vitals: Vital Signs - 12hr 06/10/19 06/10/19 06/10/19 00:41 01:00 02:00 Temperature Pulse Rate 78 77 82 Pulse Rate [ From Monitor] Respiratory 20 23 Rate Blood Pressure 170/94 166/86 174/91 O2 Sat by Pulse 100 100 Oximetry 06/10/19 06/10/19 06/10/19 03:00 04:00 04:28 Temperature 98.7 F Pulse Rate 94 H 75 75 Pulse Rate [ From Monitor] Respiratory 25 H 20 Rate Blood Pressure 186/105 170/89 170/89 O2 Sat by Pulse 100 100 Oximetry 06/10/19 06/10/19 06/10/19 04:38 05:00 06:00 Temperature Pulse Rate 95 H 94 H Pulse Rate [ 80 From Monitor] Respiratory 20 22 22 Rate Blood Pressure 177/99 172/94 O2 Sat by Pulse 96 100 100 Oximetry 06/10/19 06/10/19 06/10/19 07:00 07:39 08:00 Temperature 98.5 F Pulse Rate 73 77 Pulse Rate [ 88 From Monitor] Respiratory 20 20 Rate Blood Pressure 164/78 169/93 O2 Sat by Pulse 100 100 Oximetry 06/10/19 06/10/19 06/10/19 08:51 09:00 09:12 Temperature Pulse Rate 93 H 83 Pulse Rate [ From Monitor] Respiratory 13 Rate Blood Pressure 178/92 188/103 O2 Sat by Pulse 100 100 Oximetry 06/10/19 06/10/19 06/10/19 09:13 10:00 11:00 Temperature Pulse Rate 83 80 94 H Pulse Rate [ From Monitor] Respiratory 22 Rate Blood Pressure 188/103 163/86 160/87 O2 Sat by Pulse 100 Oximetry 06/10/19 06/10/19 11:36 12:00 Temperature 97.9 F Pulse Rate 78 Pulse Rate [ From Monitor] Respiratory Rate Blood Pressure 182/93 O2 Sat by Pulse Oximetry - Labs CBC & Chem 7: 06/09/19 03:59 06/11/19 12:53 Labs: Abnormal lab results 06/10/19 06/10/19 Range/Units 00:33 04:58 Troponin T 0.058 H D 0.051 H (0.00-0.029) ng/mL
--- NOTE | 2019-06-10 14:17 | Consultation ---
<OLIVIA HERNANDEZ - Last Filed: 06/10/19 14:21> History of Present Illness Consult date: 06/10/19 Consult reason: elevated troponin History of present illness: Frail, 68-year old male with a history of hyperlipidemia, hypertension, chronic kidney disease, prior CVA treated with Plavix. There is no history of coronary artery disease. 10 months ago the patient had a persantine thallium stress test showed no ischemia with a well preserved ejection fraction by echocardiogram. Patient was admitted to this hospital 06/08 with altered mental status and hypertensive urgency. He was evaluated by Neurology and has undergone stroke workup. An echocardiogram showed a normal left ventricular systolic function, ejection fraction 50-55%. Bubble study is negative. A cardiac consultation has been requested for non-specific elevated troponin, likely in the setting of renal failure. Creatinine at 2.5. Patient denies chest pain and shortness of breath. His presenting ECG is normal sinus rhythm. Medications and Allergies Allergies Allergy/AdvReac Type Severity Reaction Status Date / Time No Known Allergies Allergy Unverified 06/02/13 14:13 Home Medications Medication Instructions Recorded Confirmed Last Taken Type Carvedilol [Coreg] 6.25 mg PO BID #60 tablet 06/30/13 06/09/19 Unknown Rx Clopidogrel [Plavix] 75 mg PO QDAY #30 tablet 06/30/13 06/09/19 Unknown Rx Ferrous Sulfate [Feosol 325 MG tab] 325 mg PO BID #60 tablet 06/30/13 06/09/19 Unknown Rx Mirtazapine [Remeron 15mg TAB] 7.5 mg PO QHS #30 tablet 06/30/13 06/09/19 Unknown Rx Sertraline [Zoloft] 25 mg PO QDAY #30 tablet 06/30/13 06/09/19 Unknown Rx Simvastatin (Nf) [Zocor TAB] 20 mg PO QHS #30 tablet 06/30/13 06/09/19 Unknown Rx hydrALAZINE [Apresoline TAB] 100 mg PO Q8HR #90 tablet 06/30/13 06/09/19 Unknown Rx Lansoprazole Solutab [Prevacid 30 mg PO QDAY #30 tab.rapdis 07/02/13 06/09/19 Unknown Rx Solutab] Docusate Sodium [Colace CAP] 100 mg PO BID PRN 06/09/19 06/09/19 Unknown History Tamsulosin [Flomax] 0.4 mg PO QDAY 06/09/19 06/09/19 Unknown History Aspirin [Aspirin BABY CHEW TAB] 81 mg PO QDAY #30 tab.chew 06/16/19 Unknown Rx Ibuprofen [Motrin 600 MG tab] 600 mg PO Q6H PRN tablet 06/16/19 Unknown Rx NIFEdipine XL [Procardia Xl] 90 mg PO QDAY tablet 06/16/19 Unknown Rx Active Meds: Active Medications Acetaminophen (Tylenol) 650 mg PO Q4H PRN PRN Reason: Pain MILD(1-3)/Fever >100.5/HAMMOND Aspirin (Aspirin) 325 mg PO QDAY [facility] Last Admin: 06/10/19 09:10 Dose: 325 mg Documented by: Carvedilol (Coreg) 6.25 mg PO BID [facility] Last Admin: 06/10/19 09:13 Dose: 6.25 mg Documented by: Clopidogrel Bisulfate (Plavix) 75 mg PO QDAY [facility] Last Admin: 06/10/19 09:11 Dose: 75 mg Documented by: Docusate Sodium (Colace) 100 mg PO BID PRN PRN Reason: Constipation Ferrous Sulfate (Feosol) 325 mg PO BID [facility] Last Admin: 06/10/19 09:13 Dose: 325 mg Documented by: Hydralazine HCl (Apresoline) 100 mg PO Q8HR [facility] Last Admin: 06/10/19 13:19 Dose: 100 mg Documented by: Hydralazine HCl (Apresoline) 10 mg IV Q30MIN PRN PRN Reason: Hypertension Last Admin: 06/10/19 11:36 Dose: 10 mg Documented by: Sodium Chloride (Nacl 0.9% 1000 Ml) 1,000 mls @ 125 mls/hr IV DIRECT [facility] Last Infusion: 06/09/19 05:59 Dose: 0 mls/hr Documented by: Ibuprofen (Ibuprofen) 600 mg PO Q6H PRN PRN Reason: Pain, Mild (1-3) Lansoprazole (Prevacid Solutab) 30 mg FEEDTUBE QDAY [facility] Last Admin: 06/10/19 09:11 Dose: 30 mg Documented by: Losartan Potassium (Cozaar) 100 mg PO QDAY [facility] Last Admin: 06/10/19 09:12 Dose: 100 mg Documented by: Mirtazapine (Remeron) 7.5 mg PO QHS [facility] Last Admin: 06/09/19 23:21 Dose: 7.5 mg Documented by: Nifedipine (Procardia Xl) 60 mg PO QDAY [facility] Last Admin: 06/10/19 09:11 Dose: 60 mg Documented by: Ondansetron HCl (Zofran) 4 mg IV Q8H PRN PRN Reason: Nausea And Vomiting Pravastatin Sodium (Pravachol) 40 mg PO QHS [facility] Last Admin: 06/09/19 23:20 Dose: 40 mg Documented by: Sertraline HCl (Zoloft) 25 mg PO QDAY [facility] Last Admin: 06/10/19 09:14 Dose: 25 mg Documented by: Sodium Chloride (Sodium Chloride Flush Syringe 10 Ml) 10 ml IV BID [facility] Last Admin: 06/10/19 09:10 Dose: 10 ml Documented by: Sodium Chloride (Sodium Chloride Flush Syringe 10 Ml) 10 ml IV PRN PRN PRN Reason: LINE FLUSH Physical Examination Vital Signs BP 224/132 06/08/19 10:33 General appearance: no acute distress HEENT: Positive: PERRL Neck: Positive: trachea midline Cardiac: Positive: Reg Rate and Rhythm Lungs: Positive: Decreased Breath Sounds Results 06/09/19 03:59 06/09/19 03:59 Assessment and Plan Altered mental status Hypertension Chronic kidney disease Prior CVA Nonspecific troponin likely s/t CKD An echocardiogram showed a normal left ventricular systolic function, ejection fraction 50-55%. Bubble study is negative. Normal persantine thallium stress test 06/2018. Conservative cardiac management. <VERNELL VARGHSEE - Last Filed: 06/17/19 10:58> Physical Examination Vital Signs BP 224/132 06/08/19 10:33 Results 06/15/19 08:20 06/16/19 06:37 Comprehensive Metabolic Panel 06/16/19 Range/Units 06:37 Sodium 142 (137-145) mmol/L Potassium 3.9 (3.6-5.0) mmol/L Chloride 108.0 H (98-107) mmol/L Carbon Dioxide 21 L (22-30) mmol/L BUN 46 H (9-20) mg/dL Creatinine 2.9 H (0.8-1.5) mg/dL Glucose 118 H (75-100) mg/dL Calcium 8.3 L (8.4-10.2) mg/dL Assessment and Plan I've seen and evaluated the patient and agree with the assessment and plan. Patient's echocardiogram shows normal left ventricular systolic function with ejection fraction 50-55%. Patient had a normal Persantine thallium stress test in June 2018. This time recommend continued medical therapy.
[2019-06-10] MEDS: PRAVASTATIN 40 MG TAB PO SCH (21:01)
[2019-06-10] MEDS: MIRTAZAPINE 15 MG TAB PO SCH (21:01)
[2019-06-11] MEDS: hydrALAZINE 100 MG TAB PO SCH ×3 (06:10→23:00)
[2019-06-11] MEDS: ASPIRIN 325 MG TAB PO SCH (09:57)
[2019-06-11] MEDS: carvediloL 6.25 MG TAB PO SCH ×2 (09:57→22:59)
[2019-06-11] MEDS: LOSARTAN 50 MG TAB PO SCH (09:58)
[2019-06-11] MEDS: FERROUS SULFATE 325 MG TAB PO SCH ×2 (09:59→22:59)
[2019-06-11] MEDS: CLOPIDOGREL 75 MG TAB PO SCH (09:59)
[2019-06-11] MEDS: SERTRALINE 25 MG TAB PO SCH (09:59)
[2019-06-11] MEDS: NIFEdipine XL 60 MG TAB PO SCH (09:59)
--- NOTE | 2019-06-11 10:21 | Progress Note ---
Assessment and Plan Altered mental status Hypertension Chronic kidney disease Prior CVA Nonspecific troponin likely s/t CKD An echocardiogram showed a normal left ventricular systolic function, ejection fraction 50-55%. Bubble study is negative. Normal persantine thallium stress test 06/2018. Conservative cardiac management. Subjective Date of service: 06/11/19 Interval history: Patient is resting in bed comfortably. He denies chest pain and shortness of breath. Objective Vital Signs Temp Pulse Pulse Resp BP Pulse Ox 06/11/19 09:58 68 129/70 06/11/19 09:57 70 129/70 06/11/19 08:00 97.4 F L 06/11/19 06:00 62 17 141/72 06/11/19 05:00 55 L 16 125/68 100 06/11/19 04:00 98.1 F 68 57 L 19 146/76 100 06/11/19 03:00 54 L 21 149/65 100 06/11/19 02:00 57 L 19 134/62 06/11/19 01:00 59 L 15 142/64 06/11/19 00:00 98.6 F 67 61 21 137/71 99 06/10/19 23:26 84 06/10/19 23:16 68 22 136/72 100 06/10/19 23:00 84 20 128/59 99 06/10/19 22:00 77 22 128/59 100 06/10/19 21:00 74 22 130/70 99 06/10/19 20:00 70 69 25 H 144/77 100 06/10/19 19:57 97.5 F L 06/10/19 19:48 70 06/10/19 19:00 70 20 137/74 100 06/10/19 18:00 80 18 147/80 100 06/10/19 17:00 74 17 136/71 98 06/10/19 16:00 98.5 F 73 76 21 136/73 98 06/10/19 15:00 82 15 126/74 98 06/10/19 14:00 72 21 142/77 99 06/10/19 13:00 72 20 155/77 98 06/10/19 12:00 97.9 F 72 78 22 172/85 100 06/10/19 11:36 78 182/93 06/10/19 11:00 94 H 160/87 - Physical Examination General: No Apparent Distress HEENT: Positive: PERRL Neck: Positive: trachea midline Cardiac: Positive: Reg Rate and Rhythm Lungs: Positive: Decreased Breath Sounds
[2019-06-11 13:52] LABS: Calcium 8.1 mg/dL (8.4-10.2)
--- NOTE | 2019-06-11 15:03 | Progress Note ---
Assessment and Plan /Acute hypertensive encephalopathy with underlying dementia -Suspected CVA on admission which is ruled out - per family member mental status now at baseline -Patient also has underlying dementia - Patient has negative stroke workup - Continue to monitor with frequent neuro checkup, neurology following /Hypertensive emergency - Initial blood pressure was 224 x 1 32 - Placed on Cardene drip which is now weaned off - Resumed home oral medications - We will also give IV hydralazine as needed to keep systolic blood pressure less than 160 /Elevated troponin, likely NSTEMI 2 - likely from underlying CHF, elevated BP and CRD - denies chest pain, trended trop -An echocardiogram showed a normal left ventricular systolic function, ejection fraction 50-55%. Bubble study is negative. Normal persantine thallium stress test 06/2018 - consulted cardiology - medical mx for now /CKD stage III - renal functions appears to be at baseline - Patient currently not receiving dialysis and does not have diagnosis of ESRD /Anemia of chronic disease, continue to monitor H&H /CHF Ef was ~30% but now improved to 50-55%, stable - Continue aspirin and Plavix and statin /History of coronary artery disease, continue Plavix and statin /Hyperlipidemia continue statin /DVT prophylaxis, heparin 5000 every 12 hours /GERD, continue PPI /History of depression with underlying dementia - Resumed Sertraline and continue to provide supportive care /Report of fall - family stated that he sustained a fall before coming to the hospital on hos right side - will get pelvic/knee/ankle xry Physical debility, PT and OT consulted need subacute rehab. Brief History: [id number] male with history of hypertension, CHF with ejection fraction around 30% back on 2017, hyperlipidemia underlying dementia presented to the hospital with altered mental status and generalized weakness. On admission his blood pressure was noted to be 224 x 1 32. He was placed on Cardene drip, initiated stroke protocol and admitted to ICU. Radiological data: CT head no acute intracranial process MRI/MRA brain; no acute infarct 2-D echo: Results pending Hospitalist Physical exam: GENERAL: Elderly malnourished -[place] male lying on bed appeared to be in no discomfort. HEENT: Normocephalic. Atraumatic. No conjunctival congestion or icterus. Patient has moist mucous membranes. NECK: Supple. Trachea midline. CHEST/LUNGS: Clear to auscultated bilaterally, breathing nonlabored. No wheezes crackles or rhonchi. HEART/CARDIOVASCULAR: Regular in rate and rhythm. S1 and S2 positive. ABDOMEN: Abdomen is soft, nontender. Patient has normal bowel sounds. SKIN: There is no rash. Warm and dry. NEURO: No focal motor deficit. Follows command. Appears slightly confused and not oriented to time or place MUSCULOSKELETAL: No joint effusion or tenderness. EXTRIMITY: No edema, no cyanosis or clubbing. PSYCH: Cooperative. Subjective Date of service: 06/11/19 Interval history: Patient seen and examined. Medical records and medication list reviewed. No acute event overnight noted by the RN. BP stable Patient denies any chest pain or difficulty breathing. Discussed plan of care at bedside with patient's RN and his family. Patient unable to take care of himself and per the family his is out of [place] and most likely he was not able to take his medications b/o underlying dementia. family also reports a fall prior coming to the hospital. Objective - Constitutional Vitals: Vital Signs - 12hr 06/11/19 06/11/19 06/11/19 04:00 05:00 06:00 Temperature 98.1 F Pulse Rate 68 55 L 62 Pulse Rate [ 57 L From Monitor] Respiratory 19 16 17 Rate Blood Pressure 146/76 125/68 141/72 O2 Sat by Pulse 100 100 Oximetry 06/11/19 06/11/19 06/11/19 07:00 08:00 09:00 Temperature 97.4 F L Pulse Rate 68 59 L 58 L Pulse Rate [ 70 From Monitor] Respiratory 17 14 18 Rate Blood Pressure 137/78 134/67 129/70 O2 Sat by Pulse 100 100 100 Oximetry 06/11/19 06/11/19 06/11/19 09:57 09:58 10:00 Temperature Pulse Rate 70 68 72 Pulse Rate [ From Monitor] Respiratory 17 Rate Blood Pressure 129/70 129/70 146/78 O2 Sat by Pulse 100 Oximetry 06/11/19 06/11/19 11:00 12:00 Temperature 97.6 F Pulse Rate 77 Pulse Rate [ From Monitor] Respiratory 17 Rate Blood Pressure 152/74 O2 Sat by Pulse 100 Oximetry - Labs CBC & Chem 7: 06/09/19 03:59 06/11/19 12:53 Labs: Abnormal lab results 09/18/19 09/18/19 09/19/19 Range/Units 12:41 20:14 12:53 BUN 39 H (9-20) mg/dL Creatinine 2.7 H (0.8-1.5) mg/dL Glucose 106 H (75-100) mg/dL Calcium 8.1 L (8.4-10.2) mg/dL Troponin T 0.038 H D 0.053 H D (0.00-0.029) ng/mL
[2019-06-11] MEDS: PRAVASTATIN 40 MG TAB PO SCH (22:59)
[2019-06-11] MEDS: MIRTAZAPINE 15 MG TAB PO SCH (23:00)
[2019-06-12] MEDS: hydrALAZINE 100 MG TAB PO SCH ×2 (07:49→14:11)
[2019-06-12] MEDS: PANTOPRAZOLE 40 MG TAB PO SCH (09:16)
[2019-06-12] MEDS: SERTRALINE 25 MG TAB PO SCH (09:16)
[2019-06-12] MEDS: CLOPIDOGREL 75 MG TAB PO SCH (09:16)
[2019-06-12] MEDS: NIFEdipine XL 60 MG TAB PO SCH (09:16)
[2019-06-12] MEDS: FERROUS SULFATE 325 MG TAB PO SCH (09:16)
[2019-06-12] MEDS: carvediloL 6.25 MG TAB PO SCH (09:16)
[2019-06-12] MEDS: ASPIRIN 325 MG TAB PO SCH (09:16)
[2019-06-12] MEDS: LOSARTAN 50 MG TAB PO SCH (09:20)
[2019-06-12] MEDS: LANSOPRAZOLE 30 MG SOLUTAB FEEDTUBE SCH (09:39)
--- NOTE | 2019-06-12 09:39 | Progress Note ---
Assessment and Plan Altered mental status Hypertension Chronic kidney disease Prior CVA Nonspecific troponin likely s/t CKD An echocardiogram showed a normal left ventricular systolic function, ejection fraction 50-55%. Bubble study is negative. Normal persantine thallium stress test 06/2018. Conservative cardiac management. Subjective Date of service: 06/12/19 Interval history: Patient is resting in bed comfortably. He has no cardiac complaints. Objective Vital Signs Temp Pulse Pulse Resp BP Pulse Ox 06/12/19 09:20 74 134/69 06/12/19 09:16 74 134/69 06/12/19 07:20 98.8 F 67 20 154/74 100 06/12/19 01:57 98.8 F 71 20 132/69 99 06/11/19 22:59 69 123/64 06/11/19 19:32 98.5 F 69 20 123/64 100 06/11/19 16:58 99.0 F 73 20 115/70 98 06/11/19 16:40 73 13 105/61 100 06/11/19 16:31 72 22 105/61 100 06/11/19 16:21 74 16 105/61 100 06/11/19 16:11 78 20 105/61 100 06/11/19 16:00 98.4 F 68 77 19 105/61 96 06/11/19 15:51 70 19 143/79 06/11/19 15:41 77 20 143/79 06/11/19 15:31 70 21 143/79 06/11/19 15:21 69 21 110/63 100 06/11/19 15:11 72 15 110/63 06/11/19 15:01 67 21 110/63 06/11/19 15:00 74 06/11/19 14:00 83 12 143/79 100 06/11/19 13:00 60 18 134/71 06/11/19 12:00 97.6 F 65 68 19 136/69 97 06/11/19 11:00 77 17 152/74 100 06/11/19 10:00 72 17 146/78 06/11/19 09:58 68 129/70 06/11/19 09:57 70 129/70 - Physical Examination General: No Apparent Distress HEENT: Positive: PERRL Neck: Positive: trachea midline Cardiac: Positive: Reg Rate and Rhythm Lungs: Positive: Decreased Breath Sounds Neuro: Positive: Weakness - Labs and Meds Comprehensive Metabolic Panel 06/11/19 Range/Units 12:53 Sodium 139 (137-145) mmol/L Potassium 3.7 (3.6-5.0) mmol/L Chloride 106.7 (98-107) mmol/L Carbon Dioxide 22 (22-30) mmol/L BUN 39 H (9-20) mg/dL Creatinine 2.7 H (0.8-1.5) mg/dL Glucose 106 H (75-100) mg/dL Calcium 8.1 L (8.4-10.2) mg/dL
--- NOTE | 2019-06-12 10:51 | XRay Report ---
PELVIS, AP VIEW INDICATION: Pelvic pain. Fall 6 months ago. COMPARISON: None. IMPRESSION: Osteopenia is evident. Deformity at the right femoral neck is demonstrated. Subcapital fracture of the right femoral neck is suspected although it is poorly imaged on AP pelvis. No obvious pelvic fracture or diastasis. The left hip is within normal limits. LEFT KNEE, 2 VIEWS INDICATION: fall KNEE PAIN. COMPARISON: None. IMPRESSION: Osteopenia is evident. No acute fracture or malalignment. Mild osteoarthritic changes a re identified. The soft tissues are unremarkable. LEFT ANKLE, 2 VIEWS INDICATION: Left ankle pain, fall.. COMPARISON: None. IMPRESSION: Osteopenia is evident. No acute osseous findings or joint pathology is identified. The soft tissues are unremarkable. Signer Name: Milind Mireles Jr, MD Signed: 06/12/2019 10:47 AM Workstation Name: [id number]
--- NOTE | 2019-06-12 12:09 | Progress Note ---
Assessment and Plan /Report of fall with possible right femoral neck fracture - family stated that he sustained a fall before coming to the hospital on hos right side - right pelvic/knee/ankle xry obtained - questionable right femoral neck fracture - will obtain femoral xry to confirm /Acute hypertensive encephalopathy with underlying dementia -Suspected CVA on admission which is ruled out - per family member mental status now at baseline -Patient also has underlying dementia - Patient has negative stroke workup - Continue to monitor with frequent neuro checkup, neurology following /Hypertensive emergency - Initial blood pressure was 224 x 1 32 - Placed on Cardene drip which is now weaned off - Resumed home oral medications - We will also give IV hydralazine as needed to keep systolic blood pressure less than 160 /Elevated troponin, likely NSTEMI 2 - likely from underlying CHF, elevated BP and CRD - denies chest pain, trended trop -An echocardiogram showed a normal left ventricular systolic function, ejection fraction 50-55%. Bubble study is negative. Normal persantine thallium stress test 06/2018 - consulted cardiology - medical mx for now /CKD stage III - renal functions appears to be at baseline - Patient currently not receiving dialysis and does not have diagnosis of ESRD /Anemia of chronic disease, continue to monitor H&H /CHF Ef was ~30% but now improved to 50-55%, stable - Continue aspirin and Plavix and statin /History of coronary artery disease, continue Plavix and statin /Hyperlipidemia continue statin /DVT prophylaxis, heparin 5000 every 12 hours /GERD, continue PPI /History of depression with underlying dementia - Resumed Sertraline and continue to provide supportive care Physical debility, PT and OT consulted need subacute rehab. Disosition: d/c pending for placement Brief History: [id number] male with history of hypertension, CHF with ejection fraction around 30% back on 2017, hyperlipidemia underlying dementia presented to the hospital with altered mental status and generalized weakness. On admission his blood pressure was noted to be 224 x 1 32. He was placed on Cardene drip, initiated stroke protocol and admitted to ICU. Radiological data: CT head no acute intracranial process MRI/MRA brain; no acute infarct 2-D echo: preserved EF Hospitalist Physical exam: GENERAL: Elderly malnourished -[place] male lying on bed appeared to be in no discomfort. HEENT: Normocephalic. Atraumatic. No conjunctival congestion or icterus. Patient has moist mucous membranes. NECK: Supple. Trachea midline. CHEST/LUNGS: Clear to auscultated bilaterally, breathing nonlabored. No wheezes crackles or rhonchi. HEART/CARDIOVASCULAR: Regular in rate and rhythm. S1 and S2 positive. ABDOMEN: Abdomen is soft, nontender. Patient has normal bowel sounds. SKIN: There is no rash. Warm and dry. NEURO: No focal motor deficit. Follows command. Appears slightly confused and not oriented to time or place MUSCULOSKELETAL: No joint effusion or tenderness. EXTRIMITY: No edema, no cyanosis or clubbing. PSYCH: Cooperative. Subjective Date of service: 06/12/19 Interval history: Patient seen and examined. Medical records and medication list reviewed. No acute event overnight noted by the RN. BP stable Patient denies any chest pain or difficulty breathing. Discussed plan of care at bedside with patient's RN and his family. Patient unable to take care of himself and [place] and most likely he was not able to take his medications b/o underlying dementia. family also reports a fall prior coming to the hospital. Objective - Constitutional Vitals: Vital Signs - 12hr 06/12/19 06/12/19 06/12/19 01:57 07:20 09:16 Temperature 98.8 F 98.8 F Pulse Rate 71 67 74 Respiratory 20 20 Rate Blood Pressure 132/69 154/74 134/69 O2 Sat by Pulse 99 100 Oximetry 06/12/19 09:20 Temperature Pulse Rate 74 Respiratory Rate Blood Pressure 134/69 O2 Sat by Pulse Oximetry - Labs CBC & Chem 7: 06/09/19 03:59 06/11/19 12:53 Labs: Abnormal lab results 06/11/19 Range/Units 12:53 BUN 39 H (9-20) mg/dL Creatinine 2.7 H (0.8-1.5) mg/dL Glucose 106 H (75-100) mg/dL Calcium 8.1 L (8.4-10.2) mg/dL
--- NOTE | 2019-06-12 19:03 | XRay Report ---
BILATERAL FEMURS 4 VIEWS INDICATION / CLINICAL INFORMATION: Fall with bilateral leg pain. COMPARISON: None available. FINDINGS: BONES / JOINT(S): The bones are diffusely demineralized. There is a fracture of the right femoral nec k which is probably acute, but suboptimally imaged. The left femur is intact. SOFT TISSUES: There are moderate atherosclerotic calcifications. ADDITIONAL FINDINGS: None. IMPRESSION: Fracture of the right femoral neck is probably acute. Dedicated radiographs or CT of the right hip is recommended for confirmation. Signer Name: Gabriel Bull MD Signed: 06/12/2019 6:59 PM Workstation Name: [id number]
[2019-06-13] MEDS: FERROUS SULFATE 325 MG TAB PO SCH ×3 (00:11→21:44)
[2019-06-13] MEDS: carvediloL 6.25 MG TAB PO SCH ×3 (00:11→21:45)
[2019-06-13] MEDS: PRAVASTATIN 40 MG TAB PO SCH ×2 (00:12→21:46)
[2019-06-13] MEDS: MIRTAZAPINE 15 MG TAB PO SCH ×2 (00:12→21:46)
[2019-06-13] MEDS: hydrALAZINE 100 MG TAB PO SCH ×3 (08:21→21:45)
--- NOTE | 2019-06-13 09:16 | Progress Note ---
Assessment and Plan 1. Essential hypertension 2. Nonspecific serum troponin elevation likely secondary to chronic kidney disease 3. Chronic kidney disease 4. History of CVA Plan. Cardiac-banegas stable continue present conservative management Subjective Date of service: 06/13/19 Interval history: No cardiac symptoms. Objective Vital Signs Temp Pulse Resp BP Pulse Ox 06/13/19 07:27 98.3 F 76 18 140/75 99 06/13/19 01:56 98.4 F 73 18 140/75 100 06/13/19 00:11 77 163/83 06/12/19 18:58 98.7 F 77 18 163/83 100 06/12/19 13:50 98.7 F 72 20 166/82 98 06/12/19 10:00 98 06/12/19 09:20 74 134/69 06/12/19 09:16 74 134/69 - Physical Examination General: No Apparent Distress HEENT: Positive: PERRL Neck: Positive: trachea midline Cardiac: Positive: Regular Rate, Regular Rhythm, S1/S2, PMI, Laterally Displaced Lungs: Positive: Normal Exam, clear to auscultation Neuro: Positive: Weakness Abdomen: Positive: Unremarkable, Active Bowel Sounds Extremities: Absent: edema
[2019-06-13] MEDS: SERTRALINE 25 MG TAB PO SCH (09:23)
[2019-06-13] MEDS: PANTOPRAZOLE 40 MG TAB PO SCH (09:23)
[2019-06-13] MEDS: CLOPIDOGREL 75 MG TAB PO SCH (09:24)
[2019-06-13] MEDS: NIFEdipine XL 60 MG TAB PO SCH (09:24)
[2019-06-13] MEDS: ASPIRIN 325 MG TAB PO SCH (09:25)
[2019-06-13] MEDS: LOSARTAN 50 MG TAB PO SCH (09:26)
--- NOTE | 2019-06-13 12:27 | Progress Note ---
Assessment and Plan /Report of fall - xry showed right femoral neck fracture - family stated that he sustained a fall before coming to the hospital on hos right side - consult ortho /Acute hypertensive encephalopathy with underlying dementia -Suspected CVA on admission which is ruled out - per family member mental status now at baseline -Patient also has underlying dementia - Patient has negative stroke workup - Continue to monitor with frequent neuro checkup, neurology following /Hypertensive emergency - Initial blood pressure was 224 x 1 32 - Placed on Cardene drip which is now weaned off - Resumed home oral medications - We will also give IV hydralazine as needed to keep systolic blood pressure less than 160 /Elevated troponin, likely NSTEMI 2 - likely from underlying CHF, elevated BP and CRD - denies chest pain, trended trop -An echocardiogram showed a normal left ventricular systolic function, ejection fraction 50-55%. Bubble study is negative. Normal persantine thallium stress test 06/2018 - consulted cardiology - medical mx for now /CKD stage III - renal functions appears to be at baseline - Patient currently not receiving dialysis and does not have diagnosis of ESRD /Anemia of chronic disease, continue to monitor H&H /CHF Ef was ~30% but now improved to 50-55%, stable - Continue aspirin and Plavix and statin /History of coronary artery disease, continue Plavix and statin /Hyperlipidemia continue statin /DVT prophylaxis, heparin 5000 every 12 hours /GERD, continue PPI /History of depression with underlying dementia - Resumed Sertraline and continue to provide supportive care Physical debility, PT and OT consulted need subacute rehab. Disosition: d/c pending for placement Brief History: [id number] male with history of hypertension, CHF with ejection fraction around 30% back on 2017, hyperlipidemia underlying dementia presented to the hospital with altered mental status and generalized weakness. On admission his blood pressure was noted to be 224 x 1 32. He was placed on Cardene drip, initiated stroke protocol and admitted to ICU. Radiological data: CT head no acute intracranial process MRI/MRA brain; no acute infarct 2-D echo: preserved EF Hospitalist Physical exam: GENERAL: Elderly malnourished -[place] male lying on bed appeared to be in no discomfort. HEENT: Normocephalic. Atraumatic. No conjunctival congestion or icterus. Patient has moist mucous membranes. NECK: Supple. Trachea midline. CHEST/LUNGS: Clear to auscultated bilaterally, breathing nonlabored. No wheezes crackles or rhonchi. HEART/CARDIOVASCULAR: Regular in rate and rhythm. S1 and S2 positive. ABDOMEN: Abdomen is soft, nontender. Patient has normal bowel sounds. SKIN: There is no rash. Warm and dry. NEURO: No focal motor deficit. Follows command. Appears slightly confused and not oriented to time or place MUSCULOSKELETAL: No joint effusion or tenderness. EXTRIMITY: No edema, no cyanosis or clubbing. PSYCH: Cooperative. Subjective Date of service: 06/13/19 Interval history: Patient seen and examined. Medical records and medication list reviewed. No acute event overnight noted by the RN. BP stable Patient denies any chest pain or difficulty breathing. c/o leg pain Discussed plan of care with patient's RN and his family. Patient unable to take care of himself and [place] and most likely he was not able to take his medications b/o underlying dementia. family also reports a fall prior coming to the hospital. xry suggestive of right femoral neck fracture - ortho consulted Objective - Constitutional Vitals: Vital Signs - 12hr 06/13/19 06/13/19 01:56 07:27 Temperature 98.4 F 98.3 F Pulse Rate 73 76 Respiratory 18 18 Rate Blood Pressure 140/75 140/75 O2 Sat by Pulse 100 99 Oximetry - Labs CBC & Chem 7: 06/09/19 03:59 06/11/19 12:53
[2019-06-14] MEDS: hydrALAZINE 100 MG TAB PO SCH ×3 (05:17→21:58)
--- NOTE | 2019-06-14 09:08 | Progress Note ---
Assessment and Plan /Report of fall - xry showed right femoral neck fracture - family stated that he sustained a fall before coming to the hospital on hos right side - consult ortho - recommendation pending /Acute hypertensive encephalopathy with underlying dementia -Suspected CVA on admission which is ruled out - per family member mental status now at baseline -Patient also has underlying dementia - Patient has negative stroke workup - Continue to monitor with frequent neuro checkup, neurology following /Hypertensive emergency - resolved - Initial blood pressure was 224 x 1 32 - Placed on Cardene drip which is now weaned off - Resumed home oral medications - We will also give IV hydralazine as needed to keep systolic blood pressure less than 160 /Elevated troponin, likely NSTEMI 2 - likely from underlying CHF, elevated BP and CRD - denies chest pain, trended trop -An echocardiogram showed a normal left ventricular systolic function, ejection fraction 50-55%. Bubble study is negative. Normal persantine thallium stress test 06/2018 - consulted cardiology - medical mx for now /CKD stage III - renal functions appears to be at baseline - Patient currently not receiving dialysis and does not have diagnosis of ESRD /Anemia of chronic disease, continue to monitor H&H /CHF Ef was ~30% but now improved to 50-55%, stable - Continue aspirin and Plavix and statin /History of coronary artery disease, continue Plavix and statin /Hyperlipidemia continue statin /DVT prophylaxis, heparin 5000 every 12 hours /GERD, continue PPI /History of depression with underlying dementia - Resumed Sertraline and continue to provide supportive care Physical debility, PT and OT consulted need subacute rehab. Disosition: d/c when medically clear Brief History: [id number] male with history of hypertension, CHF with ejection fraction around 30% back on 2017, hyperlipidemia underlying dementia presented to the hospital with altered mental status and generalized weakness. On admission his blood pressure was noted to be 224 x 1 32. He was placed on Cardene drip, initiated stroke protocol and admitted to ICU. His BP improved, transferred out from ICU. workup showed right femoral neck fracture, ortho consulted Radiological data: CT head no acute intracranial process MRI/MRA brain; no acute infarct 2-D echo: preserved EF Hospitalist Physical exam: GENERAL: Elderly malnourished -[place]ambod[place] male lying on bed appeared to be in no discomfort. HEENT: Normocephalic. Atraumatic. No conjunctival congestion or icterus. Patient has moist mucous membranes. NECK: Supple. Trachea midline. CHEST/LUNGS: Clear to auscultated bilaterally, breathing nonlabored. No wheezes crackles or rhonchi. HEART/CARDIOVASCULAR: Regular in rate and rhythm. S1 and S2 positive. ABDOMEN: Abdomen is soft, nontender. Patient has normal bowel sounds. SKIN: There is no rash. Warm and dry. NEURO: No focal motor deficit. Follows command. Appears slightly confused and not oriented to time or place MUSCULOSKELETAL: No joint effusion or tenderness. EXTRIMITY: No edema, no cyanosis or clubbing. PSYCH: Cooperative. Subjective Date of service: 06/14/19 Interval history: Patient seen and examined. Medical records and medication list reviewed. No acute event overnight noted by the RN. BP stable Patient denies any chest pain or difficulty breathing. c/o left leg pain Discussed plan of care with patient's RN and his family. xry suggestive of right femoral neck fracture - ortho consulted Objective - Constitutional Vitals: Vital Signs - 12hr 06/13/19 06/13/19 06/14/19 21:45 22:00 02:20 Temperature 98.3 F Pulse Rate 67 72 Pulse Rate [ 67 From Monitor] Respiratory 18 18 Rate Blood Pressure 129/75 135/69 O2 Sat by Pulse 99 100 Oximetry 06/14/19 06/14/19 03:00 07:21 Temperature 98.7 F Pulse Rate 66 68 Pulse Rate [ From Monitor] Respiratory 18 Rate Blood Pressure 138/73 O2 Sat by Pulse 100 Oximetry - Labs CBC & Chem 7: 06/15/19 08:20 06/15/19 08:20
[2019-06-14] MEDS: LOSARTAN 50 MG TAB PO SCH (09:55)
[2019-06-14] MEDS: CLOPIDOGREL 75 MG TAB PO SCH (09:56)
[2019-06-14] MEDS: carvediloL 6.25 MG TAB PO SCH ×2 (09:56→21:57)
[2019-06-14] MEDS: PANTOPRAZOLE 40 MG TAB PO SCH (09:56)
[2019-06-14] MEDS: NIFEdipine XL 60 MG TAB PO SCH (09:56)
[2019-06-14] MEDS: FERROUS SULFATE 325 MG TAB PO SCH ×2 (09:56→21:57)
[2019-06-14] MEDS: SERTRALINE 25 MG TAB PO SCH (09:56)
[2019-06-14] MEDS: ASPIRIN 325 MG TAB PO SCH (09:56)
--- NOTE | 2019-06-14 10:19 | Progress Note ---
Assessment and Plan 1. Essential hypertension 2. Nonspecific serum troponin elevation likely secondary to chronic kidney disease 3. Chronic kidney disease 4. History of CVA Plan. Cardiac-banegas stable continue present conservative management Subjective Date of service: 06/14/19 Interval history: No cardiac symptoms. Objective Vital Signs Temp Pulse Pulse Resp BP Pulse Ox 06/14/19 09:55 138/72 06/14/19 07:21 98.7 F 68 18 138/73 100 06/14/19 03:00 66 06/14/19 02:20 98.3 F 72 18 135/69 100 06/13/19 22:00 67 18 99 06/13/19 21:45 67 129/75 06/13/19 20:04 98.0 F 74 16 120/65 99 06/13/19 13:59 98.5 F 67 18 129/75 99 - Physical Examination General: No Apparent Distress HEENT: Positive: PERRL Neck: Positive: trachea midline Cardiac: Positive: Regular Rate, S1/S2, PMI, Laterally Displaced Lungs: Positive: clear to auscultation, No Wheeze, Rales, Rhonchi Neuro: Positive: Weakness Abdomen: Positive: Unremarkable, Active Bowel Sounds Extremities: Absent: edema
--- NOTE | 2019-06-14 13:27 | Consultation ---
History of Present Illness - [facility] Consult date: 06/14/19 Consult reason: fracture History of present illness: 68-year-old male with a history of dementia, hypertension, CVA, and renal disease, .... The patient was noted to have change in mental status and was admitted to the hospital for further workup. Patient states he fell doesn't remember when however x-rays taken upon admission reveal a right femoral neck fracture patient however complains of pain in the left hip Medications and Allergies Allergies Allergy/AdvReac Type Severity Reaction Status Date / Time No Known Allergies Allergy Unverified 06/02/13 14:13 Home Medications Medication Instructions Recorded Confirmed Last Taken Type Carvedilol [Coreg] 6.25 mg PO BID #60 tablet 06/30/13 06/09/19 Unknown Rx Clopidogrel [Plavix] 75 mg PO QDAY #30 tablet 06/30/13 06/09/19 Unknown Rx Ferrous Sulfate [Feosol 325 MG tab] 325 mg PO BID #60 tablet 06/30/13 06/09/19 Unknown Rx Mirtazapine [Remeron 15mg TAB] 7.5 mg PO QHS #30 tablet 06/30/13 06/09/19 Unknown Rx NIFEdipine XL [Procardia Xl] 60 mg PO QDAY #30 tablet 06/30/13 06/09/19 Unknown Rx Sertraline [Zoloft] 25 mg PO QDAY #30 tablet 06/30/13 06/09/19 Unknown Rx Simvastatin (Nf) [Zocor TAB] 20 mg PO QHS #30 tablet 06/30/13 06/09/19 Unknown Rx hydrALAZINE [Apresoline TAB] 100 mg PO Q8HR #90 tablet 06/30/13 06/09/19 Unknown Rx Lansoprazole Solutab [Prevacid 30 mg PO QDAY #30 tab.rapdis 07/02/13 06/09/19 Unknown Rx Solutab] Docusate Sodium [Colace] 100 mg PO BID PRN 06/09/19 06/09/19 Unknown History Tamsulosin [Flomax] 0.4 mg PO QDAY 06/09/19 06/09/19 Unknown History Active Meds: Active Medications Acetaminophen (Tylenol) 650 mg PO Q4H PRN PRN Reason: Pain MILD(1-3)/Fever >100.5/HAMMOND Aspirin (Aspirin) 325 mg PO QDAY FREDDY Last Admin: 06/14/19 09:56 Dose: 325 mg Documented by: Carvedilol (Coreg) 6.25 mg PO BID [facility] Last Admin: 06/14/19 09:56 Dose: 6.25 mg Documented by: Clopidogrel Bisulfate (Plavix) 75 mg PO QDAY [facility] Last Admin: 06/14/19 09:56 Dose: 75 mg Documented by: Docusate Sodium (Colace) 100 mg PO BID PRN PRN Reason: Constipation Ferrous Sulfate (Feosol) 325 mg PO BID [facility] Last Admin: 06/14/19 09:56 Dose: 325 mg Documented by: Hydralazine HCl (Apresoline) 100 mg PO Q8HR [facility] Last Admin: 06/14/19 05:17 Dose: 100 mg Documented by: Hydralazine HCl (Apresoline) 10 mg IV Q30MIN PRN PRN Reason: Hypertension Last Admin: 06/10/19 11:36 Dose: 10 mg Documented by: Sodium Chloride (Nacl 0.9% 1000 Ml) 1,000 mls @ 125 mls/hr IV DIRECT [facility] Last Infusion: 06/09/19 05:59 Dose: 0 mls/hr Documented by: Ibuprofen (Ibuprofen) 600 mg PO Q6H PRN PRN Reason: Pain, Mild (1-3) Last Admin: 06/10/19 20:51 Dose: 600 mg Documented by: Losartan Potassium (Cozaar) 100 mg PO QDAY [facility] Last Admin: 06/14/19 09:55 Dose: 100 mg Documented by: Mirtazapine (Remeron) 7.5 mg PO QHS [facility] Last Admin: 06/13/19 21:46 Dose: 7.5 mg Documented by: Nifedipine (Procardia Xl) 60 mg PO QDAY [facility] Last Admin: 06/14/19 09:56 Dose: 60 mg Documented by: Ondansetron HCl (Zofran) 4 mg IV Q8H PRN PRN Reason: Nausea And Vomiting Pantoprazole Sodium (Protonix) 40 mg PO QDAY [facility] Last Admin: 06/14/19 09:56 Dose: 40 mg Documented by: Pravastatin Sodium (Pravachol) 40 mg PO QHS [facility] Last Admin: 06/13/19 21:46 Dose: 40 mg Documented by: Sertraline HCl (Zoloft) 25 mg PO QDAY [facility] Last Admin: 06/14/19 09:56 Dose: 25 mg Documented by: Sodium Chloride (Sodium Chloride Flush Syringe 10 Ml) 10 ml IV BID [facility] Last Admin: 06/14/19 09:57 Dose: 10 ml Documented by: Sodium Chloride (Sodium Chloride Flush Syringe 10 Ml) 10 ml IV PRN PRN PRN Reason: LINE FLUSH Physical Examination - Physical exam Narrative exam: On physical examination significant musculoskeletal findings relates to the right lower extremity patient was noted to have shortening and external rotation there was decrease passive range of motion at the right hip joint with tenderness noted there was no tenderness noted on the left hip Plain x-rays were reviewed by me and show a femoral neck fracture unsure whether or not is impacted or displaced therefore will order a CT scan to further evaluate fracture pattern... Recommend surgical repair since patient appears to be ambulatory Eyes: PERRL ENT: Positive: clear oral mucosa Respiratory effort: normal Respiratory: bilateral: CTA Rhythm: regular Heart Sounds: Positive: S1 & S2 General gastrointestinal: Positive: soft, non-tender, non-distended, normal bowel sounds Integumentary: clear, warm, dry Neurologic: Positive: CNII-XII intact, moves all extremities, gait normal. Negative: focal deficits
[2019-06-14] MEDS: MIRTAZAPINE 15 MG TAB PO SCH (21:57)
[2019-06-14] MEDS: PRAVASTATIN 40 MG TAB PO SCH (21:57)
--- NOTE | 2019-06-14 22:39 | Cat Scan Report ---
CT lower extremity RT wo con INDICATION / CLINICAL INFORMATION: right hip pain after fall, r/o fx. TECHNIQUE: All CT scans at this location are performed using CT dose reduction for ALARA by means of automated e xposure control. COMPARISON: Bilateral femur x-rays 06/12/2019 FINDINGS: Impacted fracture of the right femoral neck appears united. Mild degenerative changes of the hip are noted. No evidence of avascular necrosis. Right iliac bone graft donor site noted. IMPRESSION: 1. Old impacted right femoral neck fracture. Signer Name: Anthony Martel MD Signed: 06/14/2019 10:35 PM Workstation Name: [id number]
[2019-06-15] MEDS: hydrALAZINE 100 MG TAB PO SCH ×3 (05:15→21:30)
[2019-06-15 08:48] LABS: Hematocrit 29.6 % (35.5-45.6); Hemoglobin 9.9 gm/dl (11.8-15.2); Mean Corpuscular HGB Conc 33 % (32-34); Mean Corpuscular Volume 85 fl (84-94); Platelet Count 163 K/mm3 (140-440); Red Cell Distribution Width 14.7 % (13.2-15.2)
[2019-06-15 08:49] LABS: INR 1.09 (0.87-1.13)
[2019-06-15 08:56] LABS: Calcium 8.2 mg/dL (8.4-10.2)
--- NOTE | 2019-06-15 09:42 | Progress Note ---
Assessment and Plan Altered mental status Right Femoral neck fracture Hypertension Chronic kidney disease Prior CVA Nonspecific troponin likely s/t CKD An echocardiogram showed a normal left ventricular systolic function, ejection fraction 50-55%. Bubble study is negative. Normal persantine thallium stress test 06/2018. Conservative cardiac management. Subjective Date of service: 06/15/19 Interval history: Patient is resting in bed comfortably. He has no cardiac complaints. Objective Vital Signs Temp Pulse Pulse Resp BP Pulse Ox 06/15/19 07:39 98.0 F 77 20 160/85 99 06/15/19 05:00 75 100 06/15/19 04:59 73 160/87 99 06/15/19 03:00 80 06/15/19 02:50 98.9 F 72 18 143/77 99 06/14/19 23:00 80 06/14/19 22:00 72 18 100 06/14/19 21:57 72 124/69 06/14/19 19:54 98.4 F 72 18 124/69 100 06/14/19 19:00 72 06/14/19 15:00 70 06/14/19 14:52 98.8 F 70 18 155/75 99 06/14/19 09:55 138/72 - Physical Examination General: No Apparent Distress HEENT: Positive: PERRL Neck: Positive: trachea midline Cardiac: Positive: Reg Rate and Rhythm Lungs: Positive: Decreased Breath Sounds Neuro: Positive: Weakness Extremities: Absent: edema - Labs and Meds Coagulation 06/15/19 Range/Units 08:20 PT 13.8 (12.2-14.9) Sec. INR 1.09 (0.87-1.13) CBC 06/15/19 Range/Units 08:20 WBC 5.9 (4.5-11.0) K/mm3 RBC 3.50 L (3.65-5.03) M/mm3 Hgb 9.9 L (11.8-15.2) gm/dl Hct 29.6 L (35.5-45.6) % Plt Count 163 (140-440) K/mm3 Comprehensive Metabolic Panel 06/15/19 Range/Units 08:20 Sodium 142 (137-145) mmol/L Potassium 4.0 (3.6-5.0) mmol/L Chloride 106.7 (98-107) mmol/L Carbon Dioxide 23 (22-30) mmol/L BUN 46 H (9-20) mg/dL Creatinine 2.9 H (0.8-1.5) mg/dL Glucose 137 H (75-100) mg/dL Calcium 8.2 L (8.4-10.2) mg/dL
[2019-06-15] MEDS: FERROUS SULFATE 325 MG TAB PO SCH ×2 (09:45→21:29)
[2019-06-15] MEDS: PANTOPRAZOLE 40 MG TAB PO SCH (09:45)
[2019-06-15] MEDS: ASPIRIN 325 MG TAB PO SCH (09:46)
[2019-06-15] MEDS: NIFEdipine XL 60 MG TAB PO SCH (09:46)
[2019-06-15] MEDS: CLOPIDOGREL 75 MG TAB PO SCH (09:46)
[2019-06-15] MEDS: LOSARTAN 50 MG TAB PO SCH (09:47)
[2019-06-15] MEDS: carvediloL 6.25 MG TAB PO SCH ×2 (09:49→21:29)
[2019-06-15] MEDS: SERTRALINE 25 MG TAB PO SCH (10:32)
--- NOTE | 2019-06-15 12:56 | Progress Note ---
Assessment and Plan Old healed impacted right femoral neck fracture would recommend conservative treatment at this point, will get PT to begin ambulation Subjective Date of service: 06/15/19 Interval history: CT scan done overnight revealing evidence of possible old right femoral neck fracture... Objective Vital signs: Vital Signs - 12hr 06/15/19 06/15/19 06/15/19 02:50 03:00 04:59 Temperature 98.9 F Pulse Rate 72 80 73 Respiratory 18 Rate Blood Pressure 143/77 160/87 O2 Sat by Pulse 99 99 Oximetry 06/15/19 06/15/19 06/15/19 05:00 07:39 09:47 Temperature 98.0 F Pulse Rate 75 77 70 Respiratory 20 Rate Blood Pressure 160/85 162/85 O2 Sat by Pulse 100 99 Oximetry 06/15/19 10:00 Temperature Pulse Rate Respiratory 18 Rate Blood Pressure O2 Sat by Pulse 100 Oximetry Narrative Exam: On physical examination significant musculoskeletal findings relates to the right lower extremity patient was noted to have shortening and external rotation there was decrease passive range of motion at the right hip joint with tenderness noted there was no tenderness noted on the left hip Plain x-rays were reviewed by me and show a femoral neck fracture unsure whether or not is impacted or displaced therefore will order a CT scan to further evaluate fracture pattern... Recommend surgical repair since patient appears to be ambulatory - Labs CBC & BMP: 06/15/19 08:20 06/15/19 08:20 Labs: Abnormal lab results 06/15/19 06/15/19 Range/Units 08:20 08:20 RBC 3.50 L (3.65-5.03) M/mm3 Hgb 9.9 L (11.8-15.2) gm/dl Hct 29.6 L (35.5-45.6) % BUN 46 H (9-20) mg/dL Creatinine 2.9 H (0.8-1.5) mg/dL Glucose 137 H (75-100) mg/dL Calcium 8.2 L (8.4-10.2) mg/dL
[2019-06-15] MEDS ORDERED: NIFEdipine XL 60 MG TAB PO SCH (13:24)
--- NOTE | 2019-06-15 13:28 | Progress Note ---
Assessment and Plan /Report of fall - xry showed right femoral neck fracture, Ct showed fracture is chronic - family stated that he sustained a fall before coming to the hospital on hos right side - consult ortho - recommended conservative mx, Pt recommended ALEX /Acute hypertensive encephalopathy with underlying dementia -Suspected CVA on admission which is ruled out - per family member mental status now at baseline -Patient also has underlying dementia - Patient has negative stroke workup - Continue to monitor with frequent neuro checkup, neurology following /Hypertensive emergency - resolved - Initial blood pressure was 224 x 132 - Placed on Cardene drip which is now weaned off - Resumed home oral medications, hold losartan, increase CCB dose to 90mg daily - We will also give IV hydralazine as needed to keep systolic blood pressure less than 160 /Elevated troponin, likely NSTEMI 2 - likely from underlying CHF, elevated BP and CRD - denies chest pain, trended trop -An echocardiogram showed a normal left ventricular systolic function, ejection fraction 50-55%. Bubble study is negative. Normal persantine thallium stress test 06/2018 - consulted cardiology - medical mx for now /CKD stage III - renal functions appears to be at baseline - Cr 2.9 today, will stop losartan - Patient currently not receiving dialysis and does not have diagnosis of ESRD /Anemia of chronic disease, continue to monitor H&H /CHF Ef was ~30% but now improved to 50-55%, stable - Continue aspirin and Plavix and statin /History of coronary artery disease, continue Plavix and statin /Hyperlipidemia continue statin /DVT prophylaxis, heparin 5000 every 12 hours /GERD, continue PPI /History of depression with underlying dementia - Resumed Sertraline and continue to provide supportive care Physical debility, PT and OT consulted need subacute rehab. Disosition: d/c when placement available Brief History: [id number] male with history of hypertension, CHF with ejection fraction around 30% back on 2017, hyperlipidemia underlying dementia presented to the hospital with altered mental status and generalized weakness. On admission his blood pressure was noted to be 224 x 1 32. He was placed on Cardene drip, initiated stroke protocol and admitted to ICU. His BP improved, transferred out from ICU. workup showed right femoral neck fracture, ortho consulted, CT femur showed old fracture with sign of healing. Ortho recommended medical Mx, PT recommended ALEX. waiting on placement. Radiological data: CT head no acute intracranial process MRI/MRA brain; no acute infarct 2-D echo: preserved EF Hospitalist Physical exam: GENERAL: Elderly malnourished -[place] male lying on bed appeared to be in no discomfort. HEENT: Normocephalic. Atraumatic. No conjunctival congestion or icterus. Patient has moist mucous membranes. NECK: Supple. Trachea midline. CHEST/LUNGS: Clear to auscultated bilaterally, breathing nonlabored. No wheezes crackles or rhonchi. HEART/CARDIOVASCULAR: Regular in rate and rhythm. S1 and S2 positive. ABDOMEN: Abdomen is soft, nontender. Patient has normal bowel sounds. SKIN: There is no rash. Warm and dry. NEURO: No focal motor deficit. Follows command. Appears slightly confused and not oriented to time or place MUSCULOSKELETAL: No joint effusion or tenderness. EXTRIMITY: No edema, no cyanosis or clubbing. PSYCH: Cooperative. Subjective Date of service: 06/15/19 Interval history: Patient seen and examined. Medical records and medication list reviewed. No acute event overnight noted by the RN. BP stable Patient denies any chest pain or difficulty breathing. c/o left leg pain Discussed plan of care with patient's RN and his family. d/c pending on ALEX Objective - Constitutional Vitals: Vital Signs - 12hr 06/15/19 06/15/19 06/15/19 02:50 03:00 04:59 Temperature 98.9 F Pulse Rate 72 80 73 Respiratory 18 Rate Blood Pressure 143/77 160/87 O2 Sat by Pulse 99 99 Oximetry 06/15/19 06/15/19 06/15/19 05:00 07:39 09:47 Temperature 98.0 F Pulse Rate 75 77 70 Respiratory 20 Rate Blood Pressure 160/85 162/85 O2 Sat by Pulse 100 99 Oximetry 06/15/19 10:00 Temperature Pulse Rate Respiratory 18 Rate Blood Pressure O2 Sat by Pulse 100 Oximetry - Labs CBC & Chem 7: 06/15/19 08:20 06/15/19 08:20 Labs: Abnormal lab results 06/15/19 06/15/19 Range/Units 08:20 08:20 RBC 3.50 L (3.65-5.03) M/mm3 Hgb 9.9 L (11.8-15.2) gm/dl Hct 29.6 L (35.5-45.6) % BUN 46 H (9-20) mg/dL Creatinine 2.9 H (0.8-1.5) mg/dL Glucose 137 H (75-100) mg/dL Calcium 8.2 L (8.4-10.2) mg/dL
[2019-06-15] MEDS: NIFEdipine XL 90 MG TAB PO SCH (14:28)
[2019-06-15] MEDS: PRAVASTATIN 40 MG TAB PO SCH (21:28)
[2019-06-15] MEDS: MIRTAZAPINE 15 MG TAB PO SCH (21:29)
[2019-06-16] MEDS: hydrALAZINE 100 MG TAB PO SCH (05:46)
[2019-06-16 07:52] VITALS: BP 124/68
[2019-06-16] MEDS: FERROUS SULFATE 325 MG TAB PO SCH (09:18)
[2019-06-16] MEDS: NIFEdipine XL 90 MG TAB PO SCH (09:18)
[2019-06-16] MEDS: carvediloL 6.25 MG TAB PO SCH (09:18)
[2019-06-16] MEDS: CLOPIDOGREL 75 MG TAB PO SCH (09:18)
[2019-06-16] MEDS: PANTOPRAZOLE 40 MG TAB PO SCH (09:20)
[2019-06-16] MEDS: ASPIRIN 325 MG TAB PO SCH (09:20)
[2019-06-16] MEDS: SERTRALINE 25 MG TAB PO SCH (09:20)
--- NOTE | 2019-06-16 10:06 | Discharge Summary ---
Providers - Providers Date of Admission: 06/08/19 11:39 Date of discharge: 06/16/19 Attending physician: AMANDA SCHNEIDER 06/08/19 22:23 Consult to Physician [CONS] Routine Comment: Consulting Provider: VOLODYMYR TREJO Physician Instructions: Reason For Exam: CVA 06/08/19 22:28 Occupational Therapy Evaluate and Treat [CONS] Routine Comment: Reason For Exam: Neuro deficits Physical Therapy Evaluation and Treat [CONS] Routine Comment: Reason For Exam: Neuro deficits 06/10/19 11:58 Consult to Physician [CONS] Routine Comment: Consulting Provider: YARY GARCIA Physician Instructions: Reason For Exam: elevated trop 06/13/19 11:23 Consult to Physician [CONS] Routine Comment: Consulting Provider: JOJO MCNAIR Physician Instructions: Reason For Exam: femoral neck fracture 06/15/19 12:56 Physical Therapy Evaluation and Treat [CONS] Routine Comment: Reason For Exam: right hip pain Weight bearing status?: Full wt bearing Assistive devices?: Yes If so list: Walker Primary care physician: DAKOTAH RIVERA DO Hospitalization Condition: Stable Pertinent studies: Head CT Brain MRI Head neck MRA Lowe extremity CT Carotid doppler 2d echo Hospital course: 80-year-old male with history of hypertension, CHF with ejection fraction around 30% back on 2017, hyperlipidemia underlying dementia presented to the hospital with altered mental status and generalized weakness. On admission his blood pressure was noted to be 224 x 1 32. He was placed on Cardene drip, initiated stroke protocol and admitted to ICU. His BP improved, transferred out from ICU. workup showed right femoral neck fracture, ortho consulted, CT femur showed old fracture with sign of healing. Ortho recommended medical Mx, PT recommended ALEX. He was discharged to [facility] in stable condition. Radiological data: CT head no acute intracranial process MRI/MRA brain; no acute infarct 2-D echo: preserved EF CT femur: old compressed right femoral neck fracture Discharge diagnosis and management: /Report of fall - xry showed right femoral neck fracture, Ct showed fracture is chronic - family stated that he sustained a fall before coming to the hospital on hos right side - consult ortho - recommended conservative mx, Pt recommended ALEX /Acute hypertensive encephalopathy with underlying dementia -Suspected CVA on admission which is ruled out - per family member mental status now at baseline -Patient also has underlying dementia - Patient has negative stroke workup - Monitored with frequent neuro checkup, neurology was consulted /Hypertensive emergency - resolved - Initial blood pressure was 224 x 132 - Placed on Cardene drip which is now weaned off - Resumed home oral medications, held losartan, increased CCB dose to 90mg daily - Also given IV hydralazine as needed to keep systolic blood pressure less than 160 /Elevated troponin, likely NSTEMI 2 - likely from underlying CHF, elevated BP and CRD - denies chest pain, trended trop -An echocardiogram showed a normal left ventricular systolic function, ejection fraction 50-55%. Bubble study is negative. Normal persantine thallium stress test 06/2018 - consulted cardiology - recommended medical mx for now /CKD stage III - renal functions appears to be at baseline - Cr 2.9 today, will stop losartan - Patient currently not receiving dialysis and does not have diagnosis of ESRD /Anemia of chronic disease, continue to monitor H&H /CHF Ef was ~30% but now improved to 50-55%, stable - Continue aspirin, Plavix and statin /History of coronary artery disease, continue Plavix and statin /Hyperlipidemia continue statin /DVT prophylaxis, heparin 5000 every 12 hours /GERD, continue PPI /History of depression with underlying dementia - Resumed Sertraline and continue to provide supportive care Physical debility, PT and OT consulted need subacute rehab. Disosition: d/c when placement available Hospitalist Physical exam: GENERAL: Elderly malnourished -[place] male lying on bed appeared to be in no discomfort. HEENT: Normocephalic. Atraumatic. No conjunctival congestion or icterus. Patient has moist mucous membranes. NECK: Supple. Trachea midline. CHEST/LUNGS: Clear to auscultated bilaterally, breathing nonlabored. No wheezes crackles or rhonchi. HEART/CARDIOVASCULAR: Regular in rate and rhythm. S1 and S2 positive. ABDOMEN: Abdomen is soft, nontender. Patient has normal bowel sounds. SKIN: There is no rash. Warm and dry. NEURO: No focal motor deficit. Follows command. Appears slightly confused and not oriented to time or place MUSCULOSKELETAL: No joint effusion or tenderness. EXTRIMITY: No edema, no cyanosis or clubbing. PSYCH: Cooperative. Disposition: [id number]/[place]-[id number] [facility] Time spent for discharge: 34 minutes Core Measure Documentation - Palliative Care Palliative Care/ Comfort Measures: Not Applicable - Core Measures Any of the following diagnoses?: none Exam - Constitutional Vitals: Temp Pulse Resp BP Pulse Ox 98.8 F 75 20 124/68 100 06/16/19 07:28 06/16/19 09:18 06/16/19 07:28 06/16/19 09:18 06/16/19 07:28 Plan Activity: up only with assistance Weight Bearing Status: Non-Weight Bearing Diet: low fat, low salt Follow up with: DAKOTAH RIVERA DO [Primary Care Provider] - 7 Days Prescriptions: Aspirin [Aspirin BABY CHEW TAB] 81 mg PO QDAY #30 tab.chew
[2019-06-16 10:59] LABS: Calcium 8.3 mg/dL (8.4-10.2)
== END 2019-06-16 12:40 | DRG 280 ==
LOC: ED 10:13 → 4A 11:39 → CC1 14:19 → IMCU 06-09 10:49 → 2B-ACE 06-11 17:02
PROVIDERS: ADMIT Internal Medicine; ATTEND Internal Medicine
DX: I21.4 Non-ST elevation (NSTEMI) myocardial infarction (principal); I50.33 Acute on chronic diastolic (congestive) heart failure; I16.1 Hypertensive emergency; I67.4 Hypertensive encephalopathy; I13.0 Hypertensive heart and chronic kidney disease with heart failure and stage 1 through stage 4 chronic kidney disease, or unspecified chronic kidney disease; I25.10 Atherosclerotic heart disease of native coronary artery without angina pectoris; N18.3 Chronic kidney disease, stage 3 (moderate); E11.22 Type 2 diabetes mellitus with diabetic chronic kidney disease; B19.20 Unspecified viral hepatitis C without hepatic coma; E86.0 Dehydration; D63.8 Anemia in other chronic diseases classified elsewhere; E78.5 Hyperlipidemia, unspecified; K21.9 Gastro-esophageal reflux disease without esophagitis; F32.9 Major depressive disorder, single episode, unspecified; F03.90 Unspecified dementia, unspecified severity, without behavioral disturbance, psychotic disturbance, mood disturbance, and anxiety; Z79.82 Long term (current) use of aspirin; W18.39XA Other fall on same level, initial encounter; Y93.89 Activity, other specified; Y92.89 Other specified places as the place of occurrence of the external cause; Y99.8 Other external cause status
CPT/HCPCS: 36415; 70450; 70544; 70547; 70551; 72170; 80048; 80053; 80061; 82140; 82607; 82962; 83036; 84443; 84484; 85025; 85027; 85610; 85670; 85730; 86850; 86900; 86901; 93005; 93010; 93306; 93880; 95819; 96374; 96375; G0378; A9270-GY; J0360; J7030; J7050